=== PATIENT | female | born 1950 | race Caucasian/White ===

== ENCOUNTER 2017-06-08 08:07 | Outpatient (CLI) | payer MEDICARE, OTHER ==
[2017-06-08] MEDS ORDERED: LIDOCAINE 1% / SOD BICARB 8.4% 20 ML VIAL. IJ ONE (08:45)
[2017-06-08] MEDS ORDERED: IOHEXOL 180 MG/ML 10 ML VIAL. EPI ONE (08:45)
[2017-06-08 08:56] LABS: CREATININE 1.1 mg/dL (0.6-1.0); GFR 49.4
[2017-06-08 10:10] VITALS: BP 128/80
--- NOTE | 2017-06-08 11:17 | RAD ---
Lumbar myelogram, 06/08/2017: History: Back and leg pain Under local anesthesia, aseptic conditions and fluoroscopic guidance a lumbar puncture was performed at the upper L4 level utilizing a 25-gauge Samanta spinal needle. Good clear CSF flow was obtained following which 14 cc of Omnipaque 180 was injected into the thecal sac. The spinal needle was then removed and hemostasis obtained. Appropriate imaging was then performed. The patient tolerated the procedure well and was sent to CT in good condition. 3.8 minutes of fluoroscopy time was utilized. 10 fluoroscopic spot images were recorded. The following findings were delineated on the myelogram: 1. There are 4 lumbar type vertebral bodies with sacralization of L5. The lowest clearly visible disc space is therefore termed L4-5. 2. There are moderate anterior extradural defects at T12-L1, L1-2, L2-3 and L3-4. There are also posterior extradural defects at L3-4 and L4-5. In the upright position the thecal sac at L3-4 and L4-5 narrows down to an AP diameter of approximately 5 to 6 mm. 3. With flexion there is slight spondylolisthesis at L4-5. 4. There are mild lateral extradural defects bilaterally at L3-4 and L4-5. 5. There is decreased filling of the L3 and L4 nerve root sleeves, more so on the left. CT of the lumbar spine-post myelogram, 06/08/2017: Multidetector imaging was performed with multiplanar reconstructions produced. The following findings are delineated: 1. There are 4 lumbar type vertebral bodies with sacralization of L5. 2. At L1-2 there is mild to moderate broad-based posterior disc bulging. There are mild degenerative changes involving the facet joints. The central spinal canal is well-preserved. There is mild inferior foraminal encroachment on the left. 3. At L2-3 there is mild posterior disc bulging most prominent laterally on both sides. There are mild degenerative changes involving the facet joints. The central spinal canal is well-preserved. There is mild inferior foraminal narrowing bilaterally. 4. At L3-4 there is moderate broad-based posterior disc bulging there is moderate posterior ligamentous thickening related to moderate facet joint arthropathy. There is mild narrowing of the thecal sac in a triangle configuration, measuring 9 mm in AP diameter at the midline. The combination of findings is causing mild to moderate foraminal encroachment, more so on the right. 5. At L4-5 there is a vacuum disc phenomena. There is mild generalized posterior disc bulging with a small focal density along the left anterolateral aspect of the thecal sac. This probably represents a herniated disc fragment. There is poor filling of the proximal left L5 nerve root sleeve secondary to this density. There are severe degenerative changes involving the facet joints bilaterally with vacuum disc phenomena and considerable posterior ligamentous thickening. The above described left anterolateral density lies adjacent to the left facet joint. A synovial cyst producing this density cannot be excluded. The thecal sac measures 8-9 mm in AP diameter at the midline. The combination of findings is causing mild bilateral foraminal encroachment. 6. The L5-S1 disc space is fused. The thecal sac and neural foramina are widely patent at this level. IMPRESSION: 1. Sacralization of L5 with a lowest clear disc space being termed L4-5. 2. Moderate multilevel degenerative changes as described above. 3. Mild central spinal stenosis at L3-4 due to broad-based posterior disc bulging and posterior ligamentous thickening. 4. Abnormal left anterolateral epidural density at L4-5 compressing the origin of the left L5 nerve root sleeve. This is probably a herniated disc fragment. A synovial cyst related to severe facet joint arthropathy is less likely. 5. Mild central spinal stenosis at L4-5, best seen in the upright position. 6. Mild spondylolisthesis at L4-5 with flexion.
== END 2017-06-08 11:30 | disposition home or self-care (01) ==
LOC: RAD 08:07
PROVIDERS: ATTEND Neurological Surgery
DX: M51.16 Intervertebral disc disorders with radiculopathy, lumbar region (principal); M48.061 Spinal stenosis, lumbar region without neurogenic claudication; M43.16 Spondylolisthesis, lumbar region
CPT/HCPCS: 36415; 72132; 72265; 82565; 84520

== ENCOUNTER → 2017-07-16 | Outpatient (CLI) | payer MEDICARE, OTHER ==
[2017-07-16 15:58] LABS: ADD MAN DIFF? NO
[2017-07-16 16:00] LABS: HEMOGLOBIN 12.7 g/dL (12.0-15.5); MEAN CORPUSCULAR HEMOGLOBIN 29 pg (25-35); MEAN CORPUSCULAR HGB CONC 33 g/dL (31-37); MEAN CORPUSCULAR VOLUME 90 fL (79-100); PLATELET COUNT 290 x10^3/uL (140-400); RED BLOOD COUNT 4.32 x10^6/uL (3.50-5.40); RED CELL DISTRIBUTION WIDTH 13.7 % (11.5-14.5); WHITE BLOOD COUNT 8.1 x10^3/uL (4.0-11.0)
[2017-07-16 16:01] LABS: BASO # 0.1 x10^3/uL (0.0-0.2); BASO % 1 % (0-3); EOS # 0.1 x10^3/uL (0.0-0.7); EOS % 1 % (0-3); LYMPH # 2.6 x10^3/uL (1.0-4.8); LYMPH % 32 % (24-48); MONO # 0.6 x10^3/uL (0.0-1.1); MONO % 8 % (0-9); NEUT # 4.7 x10^3uL (1.8-7.7); NEUT % 58 % (31-73)
[2017-07-16 16:20] LABS: ALBUMIN 3.9 g/dL (3.4-5.0); ALBUMIN/GLOBULIN RATIO 1.1 (1.0-1.7); ALK PHOS 127 U/L (46-116); ALT (SGPT) 24 U/L (14-59); ANION GAP 10 (6-14); AST (SGOT) 27 U/L (15-37); BLOOD UREA NITROGEN 12 mg/dL (7-20); BUN/CREATININE RATIO 13 (6-20); CALCIUM 8.4 mg/dL (8.5-10.1); CARBON DIOXIDE 27 mmol/L (21-32); CHLORIDE 100 mmol/L (98-107); CREATININE 0.9 mg/dL (0.6-1.0); GFR 62.3; GLUCOSE 124 mg/dL (70-99); POTASSIUM 3.9 mmol/L (3.5-5.1); SODIUM 137 mmol/L (136-145); TOTAL BILIRUBIN 0.3 mg/dL (0.2-1.0); TOTAL PROTEIN 7.4 g/dL (6.4-8.2)
[2017-07-17 02:12] LABS: MRSA BY PCR Negative (Negative)
== END | disposition home or self-care (01) ==
LOC: SURGPAT 13:17
DX: I10 Essential (primary) hypertension (principal)
CPT/HCPCS: 36415; 80053; 85025; 87641; 93005

== ENCOUNTER 2017-07-27 06:52 | Day surgery (SDC) | payer MEDICARE, OTHER ==
[2017-07-27] MEDS ORDERED: ONDANSETRON PF 4 MG/2 ML VIAL. IV (07:00)
[2017-07-27] MEDS ORDERED: HYDROmorphone 2 MG/ML VIAL IV (07:00)
[2017-07-27] MEDS ORDERED: LIDOCAINE 1% PF 2 ML VIAL. ID (07:00)
[2017-07-27] MEDS ORDERED: fentaNYL PF VIAL 100 MCG/2 ML VIAL IV (07:00)
[2017-07-27] MEDS ORDERED: MORPHINE SULFATE 2 MG/ML DISP.SYRIN. IV (07:00)
[2017-07-27] MEDS ORDERED: PROCHLORPERAZINE 10 MG/2 ML VIAL. IV (07:00)
[2017-07-27] MEDS: IV RINGERS,LACTATED 1000ML 1,000 ML IV (07:28)
[2017-07-27] MEDS ORDERED: ONDANSETRON PF 4 MG/2 ML VIAL. (08:13)
[2017-07-27] MEDS ORDERED: DEXAMETHASONE SOD PHOS 20 MG/5 ML VIAL. (08:13)
[2017-07-27] MEDS ORDERED: ePHEDrine PF IN SALINE 50 MG/5 ML DISP.SYRIN IV (08:13)
[2017-07-27] MEDS ORDERED: PROPOFOL 20 ML IV (08:13)
[2017-07-27] MEDS ORDERED: PHENYLEPHRINE in 0.9% NACL PF 1 MG/10 ML SYRINGE. IV (08:13)
[2017-07-27] MEDS ORDERED: LIDOCAINE 2% PF Vial for OR 5 ML VIAL. (08:13)
[2017-07-27] MEDS ORDERED: SUCCINYLCHOLINE 200 MG/10 ML VIAL. (08:14)
[2017-07-27] MEDS ORDERED: PROPOFOL 50 ML IV ×2 (08:14→10:33)
[2017-07-27] MEDS ORDERED: ROCURONIUM 50 MG/5 ML VIAL. (08:14)
[2017-07-27] MEDS ORDERED: fentaNYL PF VIAL 100 MCG/2 ML VIAL (08:14)
[2017-07-27] MEDS ORDERED: REMIFENTANIL 2 MG VIAL. IV ×2 (08:15→08:19)
[2017-07-27] MEDS ORDERED: NEOSTIGMINE METHYLSULFATE 5 MG/5 ML SYRINGE. (09:35)
[2017-07-27] MEDS ORDERED: GLYCOPYRROLATE 1 MG/5 ML VIAL. (09:35)
[2017-07-27] MEDS: KETOROLAC 60 MG/2 ML INJ FOR OR. (09:42)
[2017-07-27] MEDS: GELATIN SPONGE SIZE 100. (09:42)
[2017-07-27] MEDS: THROMBIN TOPICAL 20,000 UNIT SPRAY.SYRN KIT TP (09:42)
[2017-07-27] MEDS: BACITRACIN 50,000 UNIT in IV NORMAL SALINE 1000ML BAG 1,000 ML IRR (09:42)
[2017-07-27] MEDS: BUPIVAC MPF-EPI 0.75%-1:200000 30 ML VIAL. (09:42)
[2017-07-27] MEDS ORDERED: DESFLURANE > 120 MINUTES IH (11:09)
[2017-07-27 11:51] LABS: POC GLUCOSE 170 mg/dL (70-99)
[2017-07-27] MEDS: HYDROcodone/APAP 10/325 1 TAB TABLET PO (12:09)
[2017-07-27] MEDS: fentaNYL PF VIAL 100 MCG/2 ML VIAL IV (12:36)
== END 2017-07-27 14:06 | disposition home or self-care (01) ==
LOC: SURG 06:52
DX: M51.16 Intervertebral disc disorders with radiculopathy, lumbar region (principal); M71.38 Other bursal cyst, other site; I10 Essential (primary) hypertension; F41.9 Anxiety disorder, unspecified; F32.9 Major depressive disorder, single episode, unspecified; F17.200 Nicotine dependence, unspecified, uncomplicated; Z87.39 Personal history of other diseases of the musculoskeletal system and connective tissue; Z98.41 Cataract extraction status, right eye; Z98.42 Cataract extraction status, left eye; Z98.890 Other specified postprocedural states; Z90.710 Acquired absence of both cervix and uterus; Z96.652 Presence of left artificial knee joint; Z86.39 Personal history of other endocrine, nutritional and metabolic disease
CPT/HCPCS: 63267; 76000; 82962; 88304; 88311; 97162-GP; 97530-GP; G8978-CK-GP; G8979-CK-GP; G8980-CK-GP; J0330; J0690; J1100; J1885; J2370; J2405; J2704; J2710; J3010; J3490; J7030

== ENCOUNTER → 2017-11-28 | Outpatient (CLI) | payer MEDICARE, OTHER ==
[~2017-11-28] MED LIST: IOHEXOL 180 MG/ML 10 ML VIAL.; LIDOCAINE 1% PF 2 ML VIAL.; methylPREDNISolone ACETATE 40 MG/ML VIAL.; methylPREDNISolone ACETATE 80 MG/ML VIAL.
== END | disposition home or self-care (01) ==
LOC: PNCL 10:22
DX: M51.16 Intervertebral disc disorders with radiculopathy, lumbar region (principal); M96.1 Postlaminectomy syndrome, not elsewhere classified; I10 Essential (primary) hypertension; E11.9 Type 2 diabetes mellitus without complications; I25.10 Atherosclerotic heart disease of native coronary artery without angina pectoris; E03.9 Hypothyroidism, unspecified; Z90.710 Acquired absence of both cervix and uterus; Z96.652 Presence of left artificial knee joint; Z98.890 Other specified postprocedural states; Z79.899 Other long term (current) drug therapy; Z83.3 Family history of diabetes mellitus; Z98.41 Cataract extraction status, right eye; Z98.42 Cataract extraction status, left eye; Z90.721 Acquired absence of ovaries, unilateral; Z90.79 Acquired absence of other genital organ(s); M17.0 Bilateral primary osteoarthritis of knee; M16.0 Bilateral primary osteoarthritis of hip; F41.9 Anxiety disorder, unspecified; F32.9 Major depressive disorder, single episode, unspecified; F17.200 Nicotine dependence, unspecified, uncomplicated; Z79.84 Long term (current) use of oral hypoglycemic drugs
CPT/HCPCS: 62323; J1030; J1040; Q9965

== ENCOUNTER → 2017-12-17 | Outpatient (CLI) | payer MEDICARE, OTHER | END | disposition home or self-care (01) | LOC: PNCL 13:53 | DX: M51.16 Intervertebral disc disorders with radiculopathy, lumbar region (principal); M96.1 Postlaminectomy syndrome, not elsewhere classified; I10 Essential (primary) hypertension; E11.9 Type 2 diabetes mellitus without complications; F32.9 Major depressive disorder, single episode, unspecified; F41.9 Anxiety disorder, unspecified; Z98.42 Cataract extraction status, left eye; Z98.41 Cataract extraction status, right eye; Z96.1 Presence of intraocular lens; Z98.890 Other specified postprocedural states; Z90.710 Acquired absence of both cervix and uterus; Z90.722 Acquired absence of ovaries, bilateral; Z90.79 Acquired absence of other genital organ(s); M17.0 Bilateral primary osteoarthritis of knee; M16.0 Bilateral primary osteoarthritis of hip; Z96.652 Presence of left artificial knee joint; F17.200 Nicotine dependence, unspecified, uncomplicated; Z98.62 Peripheral vascular angioplasty status | CPT/HCPCS: 62323; J1030; J1040; Q9965 ==

== ENCOUNTER → 2018-01-21 | Outpatient (CLI) | payer MEDICARE, OTHER | END | disposition home or self-care (01) | LOC: PNCL 09:42 | DX: M51.16 Intervertebral disc disorders with radiculopathy, lumbar region (principal); M96.1 Postlaminectomy syndrome, not elsewhere classified; M17.0 Bilateral primary osteoarthritis of knee; M16.0 Bilateral primary osteoarthritis of hip; I10 Essential (primary) hypertension; F32.9 Major depressive disorder, single episode, unspecified; F17.200 Nicotine dependence, unspecified, uncomplicated; I25.10 Atherosclerotic heart disease of native coronary artery without angina pectoris; E03.9 Hypothyroidism, unspecified; F41.9 Anxiety disorder, unspecified; E09.9 Drug or chemical induced diabetes mellitus without complications; E66.9 Obesity, unspecified; Z68.31 Body mass index [BMI] 31.0-31.9, adult; Z98.890 Other specified postprocedural states; Z98.42 Cataract extraction status, left eye; Z98.41 Cataract extraction status, right eye; Z79.84 Long term (current) use of oral hypoglycemic drugs; Z98.62 Peripheral vascular angioplasty status; Z96.1 Presence of intraocular lens; Z96.652 Presence of left artificial knee joint; Z90.710 Acquired absence of both cervix and uterus; Z90.79 Acquired absence of other genital organ(s); Z90.722 Acquired absence of ovaries, bilateral; Z83.3 Family history of diabetes mellitus | CPT/HCPCS: 62323; J1030; J1040; Q9965 ==

== ENCOUNTER → 2018-03-12 | Outpatient (CLI) | payer MEDICARE, OTHER ==
[~2018-03-12] MED LIST changes: +ACET325T9 PO; +ALPR0.25 PO; +AMIT50TA PO; +BUPR150T15 PO; +DOCU-109 PO; +GABA600T2 PO; +GABA800T2 PO; +HYDR-2766 PO; -IOHEXOL 180 MG/ML 10 ML VIAL.; +IOHEXOL 180 MG/ML 10 ML VIAL. IT ONE; +LEXAPRO20 MG PO; -LIDOCAINE 1% PF 2 ML VIAL.; +LIDOCAINE WITH 8.4% SOD BICARB 3 ML DISP.SYRIN. INJ ONE; +LOSA1TAB22 PO; +MELO15TA23 PO; +METH-38 PO; +MONT10TA6 PO; -methylPREDNISolone ACETATE 40 MG/ML VIAL.; -methylPREDNISolone ACETATE 80 MG/ML VIAL.
[2018-03-12 09:48] VITALS: BP 169/66
--- NOTE | 2018-03-12 10:57 | RAD ---
Lumbar myelogram, 03/12/2018: History: Right-sided back and leg pain Under local anesthesia, aseptic conditions and fluoroscopic guidance a lumbar puncture was performed at the upper L3 level utilizing a 25-gauge Samanta spinal needle. Good clear CSF flow was obtained following which 14 cc of Omnipaque 180 was injected into the thecal sac. The spinal needle was then removed and appropriate digital imaging performed. 3.0 minutes of fluoroscopy time was utilized. 14 fluoroscopic spot images were recorded. The patient tolerated the procedure well and was sent to CT in good condition. The following findings are delineated on the myelogram: 1. There are 4 lumbar type vertebral bodies with sacralization of L5. For purposes of these reports the lowest obvious disc space is considered to be L4-5. 2. There is severe circumferential narrowing of the thecal sac at the L3-4 level, best seen on the neutral upright view. On the upright flexion view there is slight anterolisthesis at L3-4 which is not present on the upright extension view. 3. There is grade 1 anterolisthesis at L4-5 best seen on the upright flexion view. It partially reduces with extension. There is mild to moderate underlying central spinal stenosis at L4-5 due to anterior and posterior extradural defects. The thecal sac measures approximately 5 mm in AP dimension at this level on the upright neutral and extension views. 4. There is poor opacification of the L3, L4 and L5 nerve root sleeves bilaterally. CT lumbar spine-post myelogram, 03/12/2018: Multidetector CT imaging was performed with multiplanar reconstructions produced. The following findings are delineated: 1. Sacralization of L5 is again noted. No significant abnormality is identified at the partially fused L5-S1 disc space. 2. At L4-5 there has been a left-sided laminectomy. There is a pars defect on the left which may be related to the surgery. There is severe facet joint arthropathy at L4-5 on the right with a vacuum phenomena. The anterolisthesis at L4-5 evident on the upright myelogram images is nearly completely reduced in the supine position. There is a vacuum disc phenomena at L4-5 with moderate broad-based posterior disc protrusion. The thecal sac measures 7-8 mm in AP dimension at the midline in the supine position. There is moderate inferior foraminal narrowing bilaterally at this level. 3. At L3-4 there are moderate degenerative changes involving the facet joints with moderate posterior ligamentous thickening. There is a vacuum disc phenomena with moderate broad-based posterior disc protrusion. The thecal sac measures 7 mm in AP dimension at the midline. There is no significant anterolisthesis at this level in the supine position. The combination of findings is causing moderate bilateral foraminal narrowing, worse on the right due to a prominent facet spur. 4. At L2-3 there is mild posterior ligamentous thickening related to mild facet joint arthropathy. There is mild to moderate broad-based posterior disc bulging. The thecal sac measures 11 mm in AP diameter at the midline. There is mild inferior foraminal narrowing bilaterally. 5. At L1-2 there is mild broad-based posterior disc bulging. The central spinal canal is well-preserved. There is mild bilateral foraminal narrowing. 6. Mild to moderate posterior disc bulges are also present at T12-L1 and T11-12. IMPRESSION: 1. Moderate to severe multilevel degenerative change as described above. 2. Sacralization of L5. 3. Severe central spinal stenosis at L3-4 best seen in the upright position, where there is also slight anterolisthesis at this level with flexion. 4. Postsurgical change at L4-5 with grade 1 spondylolisthesis in the upright position which reduces in the supine position, with mild to moderate central spinal stenosis at that level. PQRS Compliance Statement: One or more of the following individualized dose reduction techniques were utilized for this examination: 1. Automated exposure control 2. Adjustment of the mA and/or kV according to patient size 3. Use of iterative reconstruction technique
== END | disposition home or self-care (01) ==
LOC: RAD 08:17
PROVIDERS: ATTEND Neurological Surgery
DX: M48.061 Spinal stenosis, lumbar region without neurogenic claudication (principal); M43.16 Spondylolisthesis, lumbar region; M43.26 Fusion of spine, lumbar region; M12.88 Other specific arthropathies, not elsewhere classified, other specified site; M51.26 Other intervertebral disc displacement, lumbar region; F17.200 Nicotine dependence, unspecified, uncomplicated; I10 Essential (primary) hypertension; E11.9 Type 2 diabetes mellitus without complications; I25.10 Atherosclerotic heart disease of native coronary artery without angina pectoris; E03.9 Hypothyroidism, unspecified; Z86.39 Personal history of other endocrine, nutritional and metabolic disease; Z87.39 Personal history of other diseases of the musculoskeletal system and connective tissue; Z90.722 Acquired absence of ovaries, bilateral; Z90.79 Acquired absence of other genital organ(s); Z90.710 Acquired absence of both cervix and uterus; Z96.652 Presence of left artificial knee joint; Z83.3 Family history of diabetes mellitus
CPT/HCPCS: 72132; 72265; Q9965

== ENCOUNTER 2018-03-22 06:01 | Inpatient (IN) | payer MEDICARE, OTHER ==
--- NOTE | 2018-03-21 14:10 | PREOP HP ---
DATE OF SERVICE: 03/22/2018 HISTORY OF PRESENT ILLNESS: The patient is a pleasant 67-year-old whose problem is low back pain, which is predominantly on the right side along with right posterior lateral leg pain and tingling. She notes pain, which radiates on the lateral right leg to the dorsum of her right foot. She said that even when she had surgery last year for predominantly left leg pain, she did have at that time some right leg pain, which was markedly worsened. The pain has increased especially over the last couple of months. She says that frequently, the pain in her right leg is so severe that she wanted to to help the pain stop. She relates that in January, she was in the Emergency Room at [facility]. She rates her pain as a 9/10 with standing and walking. Sitting and driving her lower back seems to help her. She has been taking oxycodone as well as gabapentin. She underwent 3 epidural steroid injections recently without help. She is using a cane recently to help with ambulation. She feels there may be some weakness in her right foot. She said she has been falling because her foot seems to catch and her leg gives out. PAST MEDICAL HISTORY: Arthritis, artificial left knee, headaches and migraines, hypertension, osteoporosis, rheumatoid arthritis, diabetes. PAST SURGICAL HISTORY: Hysterectomy 1981, angioplasty balloon 1997, total knee replacement 2012, bladder repair, spinal cord stimulator 2013, decompression L4-L5 left with removal of synovial cyst. Removal of spinal cord stimulator in 07/2017 as well. FAMILY HISTORY: Cancer, diabetes and hypertension. SOCIAL HISTORY: Retired. . Exercises daily. Denies substance abuse. Denies tobacco use. Drinks coffee daily. ALLERGIES: No known drug allergies. CURRENT MEDICATIONS: Singulair, escitalopram oxalate, sodium, gabapentin, losartan, potassium, Wellbutrin, Xanax, amitriptyline, oxycodone, Robaxin. REVIEW OF SYSTEMS: A 12-point review of systems was obtained and is noncontributory except for that mentioned above. PHYSICAL EXAMINATION: NEUROSURGERY EXAMINATION: GENERAL APPEARANCE: Alert, pleasant, in mild distress because of back and leg pain. HEAD: Normocephalic and atraumatic. SKIN: Warm and dry, well-healed lumbar incision. MUSCULOSKELETAL: Lumbar paraspinal muscle bulk is normal, restricted range of motion of lumbar spine, [id number] tenderness of lower lumbar spine with palpation, normal range of motion of the lower extremities bilaterally. EXTREMITIES: No clubbing, cyanosis or edema. NEUROLOGIC: Alert and oriented x 3, normal recent memory, strength 5/5 in bilateral lower extremities except for 4+/5 right foot dorsiflexion, sensory was intact to light touch in the lower extremities bilaterally except for decrease in the dorsum of her right foot. Reflexes were trace and symmetric in bilateral lower extremities, negative straight leg raising bilaterally, antalgic gait favoring her right leg. IMAGING STUDIES: Reviewed. I reviewed her lumbar myelogram and post-myelogram CT scan. On the plain myelographic images, there are small grade 1 anterolisthesis at L3-L4 and more significant grade 1 anterolisthesis at L4-L5, which is best seen in an upright flexion view. The spondylolisthesis at L4-L5 partially reduces in x-ray and virtually completely reduces on the lumbar CT scan. There is severe central spinal stenosis at L3-L4 that is best seen in the upright plain myelographic images. There are postsurgical changes at L4-L5 with a pars defect at the left and moderate stenosis at the level measuring 5 mm and moderate foraminal narrowing. On the CT portion with the spondylolisthesis reduced, the central canal measures 8 mm. ASSESSMENT AND PLAN: 1. Radiculopathy, lumbar region. 2. Spinal stenosis, lumbar region with neurogenic claudication. 3. Spondylolisthesis, lumbar region. The patient has severe right lumbar radiculopathy. She has developed spondylolisthesis at L4-L5, which is a grade 1 when she is standing and reduced virtually completely when she is supine on the CT scan. There is severe stenosis at L3-L4, when she is upright and as well moderately severe stenosis at L4-L5 with foraminal narrowing. At this point, my feeling is that she should undergo surgery at L3-L4 and L4-L5 on the right. I would perform a hemilaminotomy at L4-L5 to decompress the dura and the root as well as open the neural foramen and combine this with an anterior diskectomy and fusion at this level along with posterior instrumentation and posterolateral fusion. At L3-L4, I have recommended a right direct laminectomy and decompress the severe lumbar spinal stenosis. I discussed surgery and risks. I explained the rationale for surgery. She understands. She would like to go ahead with surgery. We will make the arrangements. HEATHER VARMA MD DR: ALEX/main JOB#: [id number] / [id number]
[~2018-03-22] VITALS: Ht 167.6 cm; Wt 88.5 kg
[~2018-03-22 06:01] MED LIST changes: +BACITRACIN 50,000 UNIT in IV NORMAL SALINE 1000ML BAG 1,000 ML IRR ONE; +GELATIN SPONGE SIZE 100. ONE; -IOHEXOL 180 MG/ML 10 ML VIAL. IT ONE; +KETOROLAC 60 MG/2 ML INJ FOR OR. ONE; -LIDOCAINE WITH 8.4% SOD BICARB 3 ML DISP.SYRIN. INJ ONE; +OXYC-328 PO; +PRAM0.255 PO; +THROMBIN TOPICAL 20,000 UNIT SPRAY.SYRN KIT TP ONE
[2018-03-22] MEDS ORDERED: PROPOFOL 100 ML IV ONE (06:48)
[2018-03-22] MEDS ORDERED: IV RINGERS,LACTATED 1000ML 1,000 ML IV SCH (07:00)
[2018-03-22] MEDS ORDERED: fentaNYL PF VIAL 100 MCG/2 ML VIAL IV PRN ×2 (07:00→15:00)
[2018-03-22] MEDS ORDERED: PROCHLORPERAZINE 10 MG/2 ML VIAL. IV PRN (07:00)
[2018-03-22] MEDS ORDERED: HYDROmorphone 2 MG/ML VIAL IV PRN (07:00)
[2018-03-22] MEDS ORDERED: ceFAZolin 2GM PREMIX 2 GM/50 ML BAG IV ONE (07:00)
[2018-03-22] MEDS ORDERED: LIDOCAINE 1% PF 2 ML VIAL. ID PRN (07:00)
[2018-03-22] MEDS ORDERED: BUPIVAC MPF-EPI 0.5%-1:200000 30 ML VIAL. INJ ONE (07:30)
[2018-03-22] MEDS ORDERED: SUCCINYLCHOLINE 200 MG/10 ML VIAL. ONE (07:41)
[2018-03-22] MEDS ORDERED: LIDOCAINE 1% PF 5 ML VIAL. ONE (07:41)
[2018-03-22] MEDS ORDERED: ROCURONIUM 50 MG/5 ML VIAL. ONE (07:41)
[2018-03-22] MEDS ORDERED: PROPOFOL 20 ML IV ONE (07:41)
[2018-03-22] MEDS ORDERED: fentaNYL PF VIAL 100 MCG/2 ML VIAL ONE (07:41)
[2018-03-22] MEDS ORDERED: REMIFENTANIL 2 MG VIAL. IV ONE (07:42)
[2018-03-22] MEDS: fentaNYL PF VIAL 100 MCG/2 ML VIAL IV PRN ×6 (08:32→23:13)
[2018-03-22] MEDS ORDERED: DESFLURANE > 120 MINUTES IH ONE (09:05)
[2018-03-22] MEDS ORDERED: DEXAMETHASONE SOD PHOS 20 MG/5 ML VIAL. ONE (09:05)
[2018-03-22] MEDS ORDERED: ePHEDrine PF IN SALINE 50 MG/5 ML DISP.SYRIN IV ONE (09:18)
[2018-03-22] MEDS ORDERED: PHENYLEPHRINE in 0.9% NACL PF 1 MG/10 ML SYRINGE. IV ONE (09:45)
[2018-03-22] MEDS ORDERED: PHENYLEPHRINE 10 MG/ML VIAL. ONE (10:21)
[2018-03-22] MEDS ORDERED: ONDANSETRON PF 4 MG/2 ML VIAL. ONE (10:49)
[2018-03-22] MEDS ORDERED: PROPOFOL 50 ML IV ONE ×2 (11:59→14:00)
--- NOTE | 2018-03-22 12:19 | RAD ---
CT of the lumbar spine without contrast, 03/22/2018: HISTORY: Lumbar stenosis, [facility] study Noncontrast scans were obtained with multiplanar reconstructions produced. The data was transferred to the operating room to aid in the patient's stereotactically guided surgery. The following findings are delineated: 1. There is sacralization of L5. The lowest clearly visible lumbar disc space is considered to be L4-5. 2. There is severe central spinal stenosis at L3-4 and moderate central spinal stenosis at L4-5, as fully described on the recent CT myelogram of 03/12/2018. Electronically signed by: Sean Carpio MD (03/22/2018 12:16 PM) [facility]
[2018-03-22] MEDS ORDERED: REMIFENTANIL 1 MG VIAL. IV ONE (13:36)
[2018-03-22] MEDS ORDERED: ONDANSETRON PF 4 MG/2 ML VIAL. IV PRN (15:00)
[2018-03-22] MEDS ORDERED: MAG HYDROX/ALUMINUM HYD/SIMETH 30 ML ORAL.SUSP PO PRN (15:00)
[2018-03-22] MEDS ORDERED: ACETAMINOPHEN 325 MG TABLET. PO PRN (15:00)
[2018-03-22] MEDS ORDERED: CALCIUM CARBONATE 500 MG TAB.CHEW PO PRN (15:00)
[2018-03-22] MEDS ORDERED: 0.9 % SODIUM CHLORIDE 10 ML DISP.SYRIN. IV PRN (15:00)
[2018-03-22] MEDS ORDERED: diphenhydrAMINE 50 MG/ML VIAL IV PRN (15:00)
[2018-03-22] MEDS ORDERED: oxyCODONE/APAP 5/325 1 TAB TABLET PO PRN (15:00)
[2018-03-22] MEDS ORDERED: MAGNESIUM HYDROXIDE 2,400 MG/30 ML ORAL.SUSP. PO PRN (15:00)
[2018-03-22] MEDS: MORPHINE SULFATE 2 MG/ML VIAL. IV PRN ×2 (16:00→16:13)
[2018-03-22] MEDS ORDERED: POTASSIUM CL 20MEQ D5-0.45NACL 1,000 ML IV SCH (17:00)
[2018-03-22] MEDS: oxyCODONE/APAP 5/325 1 TAB TABLET PO PRN (18:25)
[2018-03-22 19:00] VITALS: BP 143/60
[2018-03-22] MEDS: AMITRIPTYLINE HCL 50 MG TABLET PO SCH (20:54)
[2018-03-22] MEDS: METHOCARBAMOL 750 MG TABLET PO SCH (20:55)
[2018-03-22] MEDS: DOCUSATE SODIUM 100 MG CAPSULE. PO SCH (20:57)
[2018-03-22] MEDS: PRAMIPEXOLE 0.25 MG TABLET. PO SCH (20:57)
[2018-03-22] MEDS: ceFAZolin SODIUM IV Push 1 GM VIAL. IVP SCH (20:58)
[2018-03-22] MEDS ORDERED: DOCUSATE SODIUM 100 MG CAPSULE. PO SCH (21:00)
[2018-03-22] MEDS ORDERED: MONTELUKAST SODIUM 10 MG TABLET. PO SCH (21:00)
[2018-03-22] MEDS ORDERED: ceFAZolin SODIUM 1 GM in IV DEXTROSE 5% 50 ML IV SCH (22:00)
[2018-03-22 23:00] VITALS: BP 148/53
[2018-03-22] MEDS: diphenhydrAMINE HCL 25 MG CAPSULE PO PRN (23:13)
[2018-03-22] MEDS ORDERED: GABA600T2 PO (23:21)
[2018-03-23] MEDS: oxyCODONE/APAP 5/325 1 TAB TABLET PO PRN ×3 (00:06→11:03)
[2018-03-23] MEDS: fentaNYL PF VIAL 100 MCG/2 ML VIAL IV PRN ×3 (02:31→08:30)
[2018-03-23 03:00] VITALS: BP 136/61
[2018-03-23] MEDS: ceFAZolin SODIUM IV Push 1 GM VIAL. IVP SCH ×2 (04:17→12:29)
[2018-03-23 07:00] VITALS: BP 152/80
[2018-03-23] MEDS: CITALOPRAM 20 MG TABLET. PO SCH (08:32)
[2018-03-23] MEDS: LOSARTAN POTASSIUM 50 MG TABLET. PO SCH (08:32)
[2018-03-23] MEDS: DOCUSATE SODIUM 100 MG CAPSULE. PO SCH ×2 (08:32→20:47)
[2018-03-23] MEDS: hydroCHLOROthiazide 25 MG TABLET PO SCH ×2 (08:32→09:00)
[2018-03-23] MEDS: METHOCARBAMOL 750 MG TABLET PO SCH ×3 (08:32→20:47)
[2018-03-23] MEDS: MONTELUKAST SODIUM 10 MG TABLET. PO SCH (08:33)
[2018-03-23] MEDS: ALPRAZolam 0.25 MG TABLET PO PRN ×2 (08:33→20:47)
[2018-03-23] MEDS: buPROPion XL 150 MG TAB.ER.24H. PO SCH (08:33)
[2018-03-23] MEDS: PRAMIPEXOLE 0.25 MG TABLET. PO SCH ×2 (08:33→20:47)
[2018-03-23 11:00] VITALS: BP 112/61
[2018-03-23] MEDS ORDERED: oxyCODONE/APAP 7.5/325 1 TAB TABLET PO PRN (12:45)
[2018-03-23] MEDS: oxyCODONE/APAP 7.5/325 1 TAB TABLET PO PRN ×2 (14:09→18:27)
[2018-03-23 15:00] VITALS: BP 117/73
[2018-03-23 19:00] VITALS: BP 118/61
--- NOTE | 2018-03-23 20:37 | PDOC ---
PROGRESS NOTES Subjective Subjective Patient seen at 1230 POD#1 resting in bed no leg pain back/ incisional pain Objective Objective Vital Signs Date Time Temp Pulse Resp B/P (MAP) Pulse Ox O2 Delivery O2 Flow Rate FiO2 03/23/18 19:27 20 96 Room Air 03/23/18 19:00 98.1 87 118/61 (80) 98.1 03/22/18 17:00 15.0 Intake and Output 03/23/18 07:00 Intake Total 2250 ml Output Total 950 ml Balance 1300 ml Intake Oral 1200 ml IV Total 1050 ml Output Urine Total 800 ml Estimated Blood Loss 150 ml # Voids 1 Physical Exam General: Alert, Oriented X3, Cooperative MUSCULOSKELETAL: Other (BYRNE) Neuro: Normal speech Skin: Other (dressing dry, inact, flat, reinforced per RN overnight) Plan Plan of Care encouraged increased activity as tolerated PT, brace on when up Likely dc tomorrow Comment Review of Relevant I have reviewed the following items zak (where applicable) has been applied. Medications Current Medications Bacitracin 94808 unit/Sodium Chloride 1,000 ml @ 1,000 mls/hr 1X ONCE IRR Last administered on 03/22/18at 09:37; Start 03/22/18 at 06:00; Stop 03/22/18 at 06:59; Status DC Fentanyl Citrate (Fentanyl 2ml Vial) 25 mcg PRN Q5MIN PRN IV MILD PAIN; Start 03/22/18 at 07:00; Stop 03/23/18 at 06:59; Status DC Fentanyl Citrate (Fentanyl 2ml Vial) 50 mcg PRN Q5MIN PRN IV MODERATE TO SEVERE PAIN Last administered on 03/22/18at 15:44; Start 03/22/18 at 07:00; Stop 03/23/18 at 06:59; Status DC Morphine Sulfate (Morphine Sulfate) 1 mg PRN Q10MIN PRN IV SEVERE PAIN Last administered on 03/22/18at 16:13; Start 03/22/18 at 07:00; Stop 03/23/18 at 06:59 ; Status DC Ringer's Solution 1,000 ml @ 30 mls/hr Q24H IV Last administered on 03/22/18at 06:55; Start 03/22/18 at 07:00; Stop 03/22/18 at 18:59; Status DC Lidocaine HCl (Xylocaine-Mpf 1% 2ml Vial) 2 ml PRN 1X PRN ID IV START; Start at 07:00; Stop 03/23/18 at 06:59; Status DC Hydromorphone HCl (Dilaudid) 0.5 mg PRN Q10MIN PRN IV SEV PAIN, Second choice; Start 03/22/18 at 07:00; Stop 03/23/18 at 06:59; Status DC Prochlorperazine Edisylate (Compazine) 5 mg PACU PRN PRN IV NAUSEA, MRX1; Start 03/22/18 at 07:00; Stop 03/23/18 at 06:59; Status DC Cefazolin Sodium/ Dextrose 50 ml @ 100 mls/hr 1X PREOP PRN IV PRIOR TO PROCEDURE Last administered on 03/22/18at 13:33; Start 03/22/18 at 06:00; Stop at 18:00; Status DC Gelatin (Gelfoam Size 100) 1 each STK-MED ONCE .ROUTE Last administered on at 09:37; Start 03/22/18 at 05:48; Stop 03/22/18 at 06:49; Status DC Ketorolac Tromethamine (Toradol For Or Only) 60 mg STK-MED ONCE .ROUTE Last administered on 03/22/18at 09:37; Start 03/22/18 at 05:49; Stop 03/22/18 at 06:50 ; Status DC Thrombin 20,000 unit STK-MED ONCE TP Last administered on 03/22/18at 09:37; Start 03/22/18 at 05:49; Stop 03/22/18 at 06:50; Status DC Bupivacaine HCl/ Epinephrine Bitart (Sensorcain-Mpf Epi 0.5%-1:[id number]) 30 ml 1X ONCE INJ Last administered on 03/22/18at 09:37; Start 03/22/18 at 07:30; Stop 03/22/18 at 07:31; Status DC Propofol 20 ml @ As Directed STK-MED ONCE IV ; Start 03/22/18 at 07:41; Stop at 07:42; Status DC Lidocaine HCl (Xylocaine-Mpf 1% 5ml Vial) 5 ml STK-MED ONCE .ROUTE ; Start 03/22 at 07:41; Stop 03/22/18 at 07:42; Status DC Fentanyl Citrate (Fentanyl 2ml Vial) 100 mcg STK-MED ONCE .ROUTE ; Start at 07:41; Stop 03/22/18 at 07:42; Status DC Succinylcholine Chloride (Anectine) 200 mg STK-MED ONCE .ROUTE ; Start 03/22/18 at 07:41; Stop 03/22/18 at 07:42; Status DC Rocuronium [place] (Zemuron) 50 mg STK-MED ONCE .ROUTE ; Start 03/22/18 at 07:41 ; Stop 03/22/18 at 07:42; Status DC Remifentanil HCl (Ultiva) 2 mg STK-MED ONCE IV ; Start 03/22/18 at 07:42; Stop 03/22/18 at 07:43; Status DC Propofol 100 ml @ As Directed STK-MED ONCE IV ; Start 03/22/18 at 06:48; Stop 03/22/18 at 07:49; Status DC Dexamethasone Sodium Phosphate (Decadron) 20 mg STK-MED ONCE .ROUTE ; Start at 09:05; Stop 03/22/18 at 09:06; Status DC Desflurane (Suprane) 90 ml STK-MED ONCE IH ; Start 03/22/18 at 09:05; Stop 03/22 at 09:06; Status DC Ephedrine Sulfate (ePHEDrine PF IN SALINE SYRINGE) 50 mg STK-MED ONCE IV ; Start 03/22/18 at 09:18; Stop 03/22/18 at 09:19; Status DC Phenylephrine HCl (PHENYLEPHRINE in 0.9% NACL PF) 1 mg STK-MED ONCE IV ; Start 03/22/18 at 09:45; Stop 03/22/18 at 09:46; Status DC Phenylephrine HCl (Brian-Synephrine Inj) 10 mg STK-MED ONCE .ROUTE ; Start at 10:21; Stop 03/22/18 at 10:22; Status DC Ondansetron HCl (Zofran) 4 mg STK-MED ONCE .ROUTE ; Start 03/22/18 at 10:49; Stop 03/22/18 at 10:50; Status DC Cefazolin Sodium/ Dextrose (Ancef 2gm Premix) 2 gm STK-MED ONCE IV ; Start 03/22 at 07:00; Stop 03/22/18 at 11:11; Status DC Propofol 50 ml @ As Directed STK-MED ONCE IV ; Start 03/22/18 at 11:59; Stop at 12:00; Status DC Cefazolin Sodium/ Dextrose 50 ml @ As Directed STK-MED ONCE IV ; Start 03/22/18 at 11:44; Stop 03/22/18 at 12:45; Status DC Remifentanil HCl (Ultiva) 1 mg STK-MED ONCE IV ; Start 03/22/18 at 13:36; Stop 03/22/18 at 13:37; Status DC Propofol 50 ml @ As Directed STK-MED ONCE IV ; Start 03/22/18 at 14:00; Stop at 14:01; Status DC Alprazolam (Xanax) 0.25 mg PRN Q6HRS PRN PO ANXIETY / AGITATION Last administered on 03/23/18at 08:33; Start 03/22/18 at 15:00 Amitriptyline HCl (Elavil) 50 mg QHS PO Last administered on 03/22/18at 20:54; Start 03/22/18 at 21:00 Bupropion HCl (Wellbutrin Xl) 150 mg DAILY PO Last administered on 03/23/18at 08 :33; Start 03/23/18 at 09:00 Docusate Sodium (Colace) 100 mg BID PO Last administered on 03/23/18at 08:32; Start 03/22/18 at 21:00 Citalopram Hydrobromide (CeleXA) 40 mg DAILY PO Last administered on 03/23/18at 08:32; Start 03/23/18 at 09:00 Losartan Potassium (Cozaar) 100 mg DAILY PO Last administered on 03/23/18at 08: 32; Start 03/23/18 at 09:00 Montelukast Sodium (Singulair) 10 mg QHS PO ; Start 03/22/18 at 21:00; Stop at 02:05; Status DC Pramipexole Dihydrochloride (miraPEX) 0.25 mg BID PO Last administered on at 08:33; Start 03/22/18 at 21:00 Fentanyl Citrate (Fentanyl 2ml Vial) 50 mcg PRN Q2HR PRN IV PAIN SEVERE 1ST CHOICE Last administered on 03/23/18at 08:30; Start 03/22/18 at 15:00 Fentanyl Citrate (Fentanyl 2ml Vial) 25 mcg PRN Q2HR PRN IV PAIN MODERATE 1ST CHOICE; Start 03/22/18 at 15:00 Acetaminophen (Tylenol) 650 mg PRN Q6HRS PRN PO HEADACHE / TEMP; Start at 15:00 Al Hydroxide/Mg Hydroxide (Mylanta Plus Xs) 30 ml PRN Q3HRS PRN PO HEARTBURN / GAS; Start 03/22/18 at 15:00 Calcium Carbonate/ Glycine (Tums) 500 mg PRN Q3HRS PRN PO INDIGESTION; Start at 15:00 Diphenhydramine HCl (Benadryl) 25 mg PRN Q6HRS PRN PO ITCHING Last administered on 03/22/18at 23:13; Start 03/22/18 at 15:00 Diphenhydramine HCl (Benadryl) 25 mg PRN Q6HRS PRN IV ITCHING; Start 03/22/18 at 15:00 Sodium Chloride (Normal Saline Flush) 3 ml QSHIFT PRN IV AFTER MEDS AND BLOOD DRAWS; Start 03/22/18 at 15:00 Potassium Chloride/Dextrose/ Sod Cl 1,000 ml @ 75 mls/hr [id number] IV ; Start at 17:00; Stop 03/23/18 at 06:26; Status DC Oxycodone/ Acetaminophen (Percocet 5/325) 1 tab PRN Q4HRS PRN PO MILD PAIN, 1ST CHOICE; Start 03/22/18 at 15:00; Stop 03/23/18 at 12:39; Status DC Oxycodone/ Acetaminophen (Percocet 5/325) 2 tab PRN Q4HRS PRN PO MODERATE PAIN , SEVERE PAIN Last administered on 03/23/18at 11:03; Start 03/22/18 at 15:00; Stop 03/23/18 at 12:39; Status DC Methocarbamol (Robaxin) 750 mg TID PO Last administered on 03/23/18at 14:09; Start 03/22/18 at 21:00 Docusate Sodium (Colace) 100 mg BID PO ; Start 03/22/18 at 21:00; Status UNV Magnesium Hydroxide (Milk Of Magnesia) 2,400 mg PRN Q12HR PRN PO CONSTIPATION; Start 03/22/18 at 15:00 Ondansetron HCl (Zofran) 4 mg PRN Q6HRS PRN IV NAUESA, 1ST CHOICE; Start at 15:00 Cefazolin Sodium 1 gm/Dextrose 50 ml @ 100 mls/hr Q8HRS IV ; Start 03/22/18 at 22:00; Stop 03/22/18 at 22:00; Status DC Cefazolin Sodium (Ancef) 1 gm Q8H IVP Last administered on 03/23/18at 12:29; Start 03/22/18 at 20:00; Stop 03/23/18 at 12:01; Status DC Hydrochlorothiazide (Hydrodiuril) 25 mg DAILY PO ; Start 03/23/18 at 09:00 Montelukast Sodium (Singulair) 10 mg DAILY PO Last administered on 03/23/18at 08 :33; Start 03/23/18 at 09:00 Oxycodone/ Acetaminophen (Percocet 7.5/ 325) 2 tab PRN Q4HRS PRN PO PAIN Last administered on 03/23/18at 18:27; Start 03/23/18 at 12:45 Oxycodone/ Acetaminophen (Percocet 7.5/ 325) 1 tab PRN Q4HRS PRN PO PAIN; Start 03/23/18 at 12:45 Active Scripts Active Colace (Docusate Sodium) 100 Mg Capsule 100 Mg PO BID Reported Gabapentin 600 Mg Tablet 600 Mg PO TID PRN Percocet 10-325 Mg Tablet (Oxycodone/Acetaminophen) 1 Each Tablet 2 Tab PO QID Mirapex (Pramipexole Di-Hcl) 0.25 Mg Tablet 0.25 Mg PO BID Xanax (Alprazolam) 0.25 Mg Tablet 0.25 Mg PO PRN Q6HRS PRN Wellbutrin Xl (Bupropion Hcl) 150 Mg Tab.er.24h 150 Mg PO DAILY Meloxicam 15 Mg Tablet 15 Mg PO DAILY Losartan-Hctz 100-25 Mg Tab (Losartan/Hydrochlorothiazide) 1 Each Tablet 1 Each PO DAILY Lexapro (Escitalopram Oxalate) 20 Mg Tablet 20 Mg PO DAILY Hydrocodone-Apap 10-325 (Hydrocodone Bit/Acetaminophen) 1 Each Tablet 1 Tab PO PRN Q6HRS PRN Singulair Tablet (Montelukast Sodium) 10 Mg Tablet 10 Mg PO DAILY Amitriptyline Hcl 50 Mg Tablet 1 Tab PO QHS Vitals/I & O Vital Sign - Last 24 Hours 03/22/18 03/22/18 03/23/18 03/23/18 23:00 23:13 00:06 02:31 Temp 99.1 99.1 Pulse 88 Resp 18 18 18 B/P (MAP) 148/53 (84) Pulse Ox 97 O2 Delivery Room Air Room Air Room Air Room Air 03/23/18 03/23/18 03/23/18 03/23/18 03:00 05:49 06:52 07:00 Temp 98.3 99.3 98.3 99.3 Pulse 81 95 Resp 18 18 20 B/P (MAP) 136/61 (86) 152/80 (104) Pulse Ox 99 95 O2 Delivery Room Air Room Air Room Air Room Air 03/23/18 03/23/18 03/23/18 03/23/18 08:00 08:30 08:32 09:00 Pulse 95 Resp 18 18 B/P (MAP) 152/80 Pulse Ox 99 96 O2 Delivery Room Air Room Air Room Air 03/23/18 03/23/18 03/23/18 03/23/18 11:00 11:03 12:05 14:09 Temp 98.2 98.2 Pulse 88 Resp 20 14 17 14 B/P (MAP) 112/61 (78) Pulse Ox 96 96 O2 Delivery Room Air Room Air Room Air Room Air 03/23/18 03/23/18 03/23/18 03/23/18 15:00 18:27 19:00 19:27 Temp 98.4 98.1 98.4 98.1 Pulse 87 87 Resp 18 18 18 20 B/P (MAP) 117/73 (88) 118/61 (80) Pulse Ox 96 96 97 96 O2 Delivery Room Air Room Air Room Air Room Air Intake and Output 03/22/18 03/22/18 03/23/18 15:00 23:00 07:00 Intake Total 700 ml 550 ml 1000 ml Output Total 950 ml Balance 700 ml -400 ml 1000 ml HEATHER VARMA MD Mar 23, 2018 20:37
[2018-03-23] MEDS: diphenhydrAMINE HCL 25 MG CAPSULE PO PRN (20:47)
[2018-03-23] MEDS: AMITRIPTYLINE HCL 50 MG TABLET PO SCH (20:47)
[2018-03-24] MEDS: oxyCODONE/APAP 7.5/325 1 TAB TABLET PO PRN ×4 (00:33→13:19)
[2018-03-24 03:00] VITALS: BP 115/67
[2018-03-24] MEDS: ALPRAZolam 0.25 MG TABLET PO PRN ×2 (05:22→11:29)
[2018-03-24 07:00] VITALS: BP 115/55
[2018-03-24] MEDS: DOCUSATE SODIUM 100 MG CAPSULE. PO SCH (08:03)
[2018-03-24] MEDS: CITALOPRAM 20 MG TABLET. PO SCH (08:03)
[2018-03-24] MEDS: hydroCHLOROthiazide 25 MG TABLET PO SCH ×2 (08:03→09:27)
[2018-03-24] MEDS: METHOCARBAMOL 750 MG TABLET PO SCH ×2 (08:04→13:19)
[2018-03-24] MEDS: MONTELUKAST SODIUM 10 MG TABLET. PO SCH (08:04)
[2018-03-24] MEDS: buPROPion XL 150 MG TAB.ER.24H. PO SCH (08:04)
[2018-03-24] MEDS: PRAMIPEXOLE 0.25 MG TABLET. PO SCH (08:04)
[2018-03-24] MEDS ORDERED: GABAPENTIN 300 MG CAPSULE. PO PRN (09:00)
[2018-03-24] MEDS: LOSARTAN POTASSIUM 50 MG TABLET. PO SCH (09:27)
[2018-03-24 11:00] VITALS: BP 96/75
--- NOTE | 2018-03-24 12:29 | DISCH ---
DISCHARGE INSTRUCTIONS Condition on Discharge Condition on Discharge: Stable Activity After Discharge Activity Instructions for Disc: Activity as tolerated, Avoid exertion Bathing Instructions: Shower-keep dressing dry Lifting Instructions after Dis: No heavy lifting, No pulling or pushing, Do not lift >10 pounds Driving Instructions after Dis: No driving for 2 weeks Diet after Discharge Additional Diet Restrictions: resume home diet Wound Incision Care Wound/Incision Care: Ice to area for comfort Other wound/incision instructi: may remove dressing tomorrow if dry then may shower- no soaking Contacting the DRRomel after DC Call your doctor for: Concerns you may have Follow-Up Follow up with: Dr. Rouse's nurse in 2 weeks [phone] Treatment/Equipment after DC Adaptive Equipment Issued: HEATHER Lopez MD Mar 24, 2018 12:29
[2018-03-24] MEDS ORDERED: METH750T2 PO (12:33)
[2018-03-24] MEDS ORDERED: OXYC1TAB8 PO (12:33)
--- NOTE | 2018-03-24 19:00 | OP ---
DATE OF SURGERY: 03/22/2018 PREOPERATIVE DIAGNOSES: 1. Spondylolisthesis L4-L5 with motion on flexion and extension with severe right lumbar radiculopathy. 2. Lumbar spinal stenosis, L3-L4. OPERATION PERFORMED: 1. Hemilaminotomy and transforaminal decompression of right L4-L5. 2. Laminectomy L3-L4. 3. Posterior instrumentation L4-L5 and posterolateral fusion L4-L5 with allograft and autograft bone along with anterior diskectomy L4-L5 with placement of interbody fusion cage. The operation was done with stimulated EMG monitoring, fluoroscopy, microscopic dissection, BrainLAB guidance, bone marrow aspiration. METAL SMELTER: BIBIANA Gann assisted with the surgery. She assisted with the decompression, the anterior fusion as well as the posterior instrumentation, posterolateral fusion and closure. OPERATIVE INDICATIONS: The patient is a very pleasant 67-year-old woman who last year underwent a decompression on the left at L4-L5 and did well from that with regard to her left leg pain, but then developed increasingly severe right lower extremity pain, which failed to improve with epidural steroid injections. The pain became severe enough that she had difficulty ambulating. On imaging studies, she was found to have developed motion at L4-L5 along with significant lateral stenosis at the level on the right side and in addition, stenosis at L3-L4. I recommended surgery to correct the stenosis at L3-L4 combined with the decompression and instrumentation at L4-L5. I spoke with her about the surgery and the risks, she understood and she wished to go ahead. DESCRIPTION OF PROCEDURE: Following general endotracheal anesthesia, the patient was positioned prone on the Liam table with lumbar regions prepped and draped in standard fashion. PAPI hose and AV impulse boots were applied for DVT prophylaxis. The microscope was draped. Fluoroscopy was draped and brought into the field. Monitoring was established. Ancef 2 g was given less than 1 hour prior to the initiation of the surgery. Iliac screws were placed into the left iliac crest and the BrainLAB system was initialized. I then made an incision, which included part of her old incision, but extended from L3 through L5. I dissected down the skin and subcutaneous tissue and I created an exposure at L3-L4, brought in the high speed air drill and brought in the microscope and drilled down a very generous hemilaminotomy, which I then carried across the midline to the performer laminectomy. I trimmed away very thickened ligamentum flavum, removed interspinous fat, and I worked laterally exposing the dura and performing a partial foraminotomy on the right side to decompress the nerve roots. The disk was bulging slightly, but very firm. No diskectomy was warranted and as I worked removing the very thickened ligamentum flavum and fully decompressing the region, I felt that I had developed an excellent decompression at L3-L4. When I completed the laminectomy at this level, then I moved down to L4-L5 and on the left side, then I created an exposure and using the Aud[employer] Magic system, drilled into the posterior aspect of the pedicles of L4 and L5. I passed the black ball followed by the ball tip probe, followed by tap and screw placement. During this time, I aspirated 20 mL of bone marrow and I excoriated the transverse processes and lateral facets and packed allograft and autograft bone into the left lateral gutter. The autograft bone, I obtained from the laminectomy at L3-L4. The screws were placed. The ingrid was placed. I did not torque the system. I then went to the right side and in a similar fashion, exposed the pedicles of L4 and L5 and cannulated the pedicles, but did not yet place screws. I did at this point excoriated transverse processes and lateral facets and packed allograft and autograft bone at the location. I then brought in the microscope and I burred down a very generous hemilaminotomy at L4-L5 on the right and then I carried this laterally and assured myself that both the L4 and the L5 roots were well decompressed. I found that in this patient, the L4 root was much larger than average and as it tracked laterally, was compressed by the spondylolisthesis and the hypertrophic ligament. I trimmed the ligament away. I created an excellent exposure for the nerve and then at this point, I placed the pedicle screws at L4 and L5 on the right. I distracted the disk space on the right at this location and then I tilted the bed away from me and perform the anterior operation by making an incision in the right flank. I passed the Audible Magic system with a sheath down to dock at the lateral aspect of the pedicle of L5 and working superior to that. I was able to enter the disk safely with a K wire. I passed the dilator, followed by a working channel. Through this and with pituitaries, I performed a diskectomy. I also used endplate scrapers and scraped again endplate cartilage and as I worked gently, I was able to perform an adequate diskectomy from this approach. I replaced the dilator and then passed the shield to protect the nerve root and removed the dilator. I felt though that the nerve root, because of its large size, was under some pressure and this made me much more cautious about placing the interbody fusion cage. I was able then to gently pass the cage in a safe manner, entering into the disk space and then I gently drilled with further into the disk space from the anterior position and protected the nerve root very well throughout. I obtained fluoroscopic images, showed good position of the cage and I gently compressed the screws on the right hand side to prevent any cage migration. The patient was tilted back and the hardware was torqued. I explored carefully and assured myself that the L4 and the L5 roots were quite free. There was no period where there was significant firing of those root. I was very pleased. I irrigated copiously with antibiotic solution. I explored carefully and laid further fusion bone in the lateral gutters and during this time, I also torqued the hardware on the left in a sequential fashion. At this point then, the laminectomy was completed at L3-L4. The interbody fusion cage and diskectomy were done at L4-L5. The right-sided nerve roots were well decompressed at L4-L5. I felt that I had accomplished my objectives. I irrigated copiously with antibiotic solution. I closed the wound in layers with absorbable suture and the skin was closed with a 4-0 subcuticular stitch. The operation went very well and the patient was taken uneventfully to recovery room in excellent condition. I was quite pleased with the surgery. HEATHER VARMA MD DR: ALEX/main JOB#: [id number] / [id number]
--- NOTE | 2018-03-27 11:10 | PATHOLOGY ---
[facility] Accession Number: [id number] . 01 Material submitted: . LUMBAR DISC AND DECOMPRESSION . 01 Clinician provided ICD-10: M48.061 M54.16 M43.16 . 01 Clinical history: . Lumbar radiculopathy, stenosis, spondylolisthesis . 02 Diagnosis: Segments of fibrocartilaginous, fibroadipose, and skeletal muscle tissue and bone, lumbar disc and decompression: - Degenerative changes of fibrocartilaginous tissue with focal neovascularization. [facility]/03/26/2018 . 02 Comment: There is no evidence of an acute inflammatory process or malignancy. . (JPM:mml; 03/26/18) . 02 Electronically signed: . Tico Joiner MD, Pathologist NPI- [id number] . 01 Gross description: . The specimen is received in formalin, labeled "Jesus Manuel Simon, lumbar disc and decompression" and consists of multiple fragments of fibrous tissue, adipose/soft tissue, and bone measuring 5.8 x 5.5 x 1.3 cm in aggregate. A rental sales representative portion is submitted in A1 following decalcification. (SDY; 03/25/2018) SYU/SYU . 02 Pathologist provided ICD-10: M51.36 . 02 CPT . 215011, 019616 Specimen Comment: A courtesy copy of this report has been sent to Specimen Comment: [phone], . Specimen Comment: Report sent to / DR CANNON Performed at: 01 [facility] [address], [place], [place] [id number] MD Benji Saeed MD Phone: [phone] Performed at: 02 [facility] [address], [place] [id number] MD Tico Joiner MD Phone: [phone]
== END 2018-03-24 13:30 | disposition home or self-care (01) | DRG 455 ==
LOC: OPSVCIP 06:01 → 4 NORTH 16:18
PROVIDERS: ADMIT Neurological Surgery; ATTEND Neurological Surgery
PROC: 0SG00A0 Fusion of Lumbar Vertebral Joint with Interbody Fusion Device, Anterior Approach, Anterior Column, Open Approach (ICD-10-PCS; 2018-03-22)
PROC: 0SB20ZZ Excision of Lumbar Vertebral Disc, Open Approach (ICD-10-PCS; 2018-03-22)
PROC: 01NB0ZZ Release Lumbar Nerve, Open Approach (ICD-10-PCS; 2018-03-22)
PROC: 4A11X4G Monitoring of Peripheral Nervous Electrical Activity, Intraoperative, External Approach (ICD-10-PCS; 2018-03-22)
PROC: 0SG0071 Fusion of Lumbar Vertebral Joint with Autologous Tissue Substitute, Posterior Approach, Posterior Column, Open Approach (ICD-10-PCS; principal; 2018-03-22 08:30)
DX: M48.062 Spinal stenosis, lumbar region with neurogenic claudication (principal); M43.16 Spondylolisthesis, lumbar region; M54.16 Radiculopathy, lumbar region; M06.9 Rheumatoid arthritis, unspecified; M19.90 Unspecified osteoarthritis, unspecified site; M81.0 Age-related osteoporosis without current pathological fracture; I10 Essential (primary) hypertension; E11.9 Type 2 diabetes mellitus without complications; G43.909 Migraine, unspecified, not intractable, without status migrainosus; Z96.659 Presence of unspecified artificial knee joint; Z90.710 Acquired absence of both cervix and uterus; Z83.3 Family history of diabetes mellitus; Z82.49 Family history of ischemic heart disease and other diseases of the circulatory system
CPT/HCPCS: 36415; 72131; 76000; 80053; 85025; 85610; 85730; 86850; 86900; 86901; 87641; 88304; 88311; A7015; C1713; J0330; J0690; J1100; J1885; J2270; J2370; J2405; J2704; J3010; J3490; J7030; J7120; Q0163; 97116; 97530

== ENCOUNTER → 2018-10-23 | Outpatient (CLI) | payer MEDICARE, OTHER ==
[~2018-10-23] MED LIST changes: -BACITRACIN 50,000 UNIT in IV NORMAL SALINE 1000ML BAG 1,000 ML IRR ONE; -GABA600T2 PO; +GABA600T7 PO; -GABA800T2 PO; +GABA800T5 PO; +GADOBUTROL 7.5 MMOL/7.5 ML VIAL IV ONE; -GELATIN SPONGE SIZE 100. ONE; -HYDR-2766 PO; +HYDR-2769 PO; -KETOROLAC 60 MG/2 ML INJ FOR OR. ONE; +METH750T2 PO; -OXYC-328 PO; +OXYC1TAB22 PO; +OXYC1TAB8 PO; -THROMBIN TOPICAL 20,000 UNIT SPRAY.SYRN KIT TP ONE
[2018-10-23 10:05] LABS: CREATININE 1.1 mg/dL (0.6-1.0); GFR 49.2
--- NOTE | 2018-10-23 11:25 | RAD ---
MRI Lumbar Spine without and with contrast History: Chronic low back pain with worsening left leg radiculopathy, previous lumbar fusion, previous spinal stimulator Technique: Multiplanar, multi sequential pre- and postcontrast MR imaging was performed of the lumbar spine. Comparison: None other than March 22, 2018 CT exam. Findings: There is again transitional anatomy of the lumbar spine. There is a rudimentary intervertebral disc space at what is considered L5-S1 with the most inferior fully formed intervertebral disc space considered L4-5. There is grade 1 anterior spondylolisthesis at what is considered L4-5, negligible anterior spondylolisthesis at L3-4. There are now bilateral pedicle screws at what is considered L4-5, also interbody graft. Exam does not accurately evaluate integrity of hardware. There are multilevel Schmorl's nodes, largest focus superiorly of T12 as seen previously. There is again narrowing L4-5 and vertebral disc space, mild degenerative disc disease L3-4 and mild disc desiccation more superior lumbar levels. There is trace edema of the superior L5 endplate likely reactive/degenerative in etiology. Conus terminates near T12-L1. There is no nodular enhancement of the conus or cauda equina. There is nonspecific fairly diffuse heterogeneity of the marrow signal, not associated with significant STIR hyperintense signal/edema. T12-L1: There is negligible disc osteophyte complex and bulge. Spinal canal and neural foramina are adequate. L1-L2: There is mild buckling of the ligamentum flavum and facet degenerative change. There is negligible disc osteophyte complex. Spinal canal and neural foramina are adequate. There is hemangioma of the right superior L1 vertebral body. L2-L3: There is mild buckling of the ligamentum flavum and facet degenerative change. There is small synovial cyst in the far right lateral recess about 0.4 cm greatest dimension, contributes to mild narrowing of the far right lateral recess from posteriorly. Neural foramina are adequate. L3-L4: There has been posterior decompression. There is minimal disc osteophyte complex and bulge, mild indentation upon the ventral thecal sac. There is minimal narrowing of the far left lateral recess. There is a nonspecific, likely fluid collection on the right located posterior to site of posterior decompression estimated about 1.9 cm CC by 0.8 cm AP by about 0.7 cm transverse best seen on postcontrast images, does not result in mass effect upon the thecal sac. There is facet degenerative change which contributes to mild posterior narrowing of the right neural foramen. There is also mild to moderate narrowing of the left neural foramen by facet degenerative change and disc osteophyte complex. L4-L5: There has been posterior decompression. There is mild partial uncovering of the posterior aspect of the disc due to spondylolisthesis. Spinal canal is overall adequate. There is mild narrowing of the left neural foramen. There is more focal epidural lipomatosis in the far right lateral recess at the posterior margin of the right neural foramen. Right neural foramen is poorly visualized with effacement of perineural fat around the exiting right L4 nerve root, likely overall mild narrowing. L5-S1: Neural foramina and spinal canal are adequate. Impression: 1. There is transitional anatomy of the lumbar spine, grade 1 anterior spondylolisthesis at what is considered L4-5 and to lesser degree at L3-4. There has been posterolateral fusion at what is considered L4-5. There is no significant lumbar spinal stenosis, minimal narrowing of the far left lateral recess at L3-4 and minimal narrowing of the far right lateral recess from posteriorly at L2-3. There is neural foramina compromise as stated most notable [id number] narrowing on the left at L3-4, mild narrowing on the right at L3-4 and bilaterally at L4-5. Electronically signed by: Bernabe Hughes MD (10/23/2018 11:21 AM) [facility]
--- NOTE | 2018-10-23 12:50 | RAD ---
EXAM: Right hip, 2 views. HISTORY: Pain. COMPARISON: None. FINDINGS: 2 views of the right hip are obtained. There is no fracture, dislocation or subluxation. There is instrumented fusion involving the visualized lumbar spine. IMPRESSION: No acute osseous finding. Electronically signed by: Willa Powers MD (10/23/2018 12:47 PM) [facility]
== END | disposition home or self-care (01) ==
LOC: MRI 08:58
PROVIDERS: ATTEND Neurological Surgery
DX: M43.16 Spondylolisthesis, lumbar region (principal); M48.061 Spinal stenosis, lumbar region without neurogenic claudication; M43.26 Fusion of spine, lumbar region; M51.16 Intervertebral disc disorders with radiculopathy, lumbar region; M25.78 Osteophyte, vertebrae; D18.09 Hemangioma of other sites; M71.38 Other bursal cyst, other site; M25.551 Pain in right hip; G89.29 Other chronic pain
CPT/HCPCS: 36415; 72158; 73502; 82565; 84520; A9585

== ENCOUNTER → 2018-11-27 | Outpatient (CLI) | payer MEDICARE, OTHER ==
[~2018-11-27] MED LIST changes: -GADOBUTROL 7.5 MMOL/7.5 ML VIAL IV ONE
--- NOTE | 2018-11-27 11:20 | RAD ---
EXAM: MRI right shoulder DATE: 11/27/2018 10:30 AM COMPARISON: 11/20/2018 INDICATION: Right shoulder pain-2 months TECHNIQUE: Multiplanar, multisequence MRI of the right shoulder was performed without contrast. FINDINGS: No significant right glenohumeral joint effusion. Trace subacromial-subdeltoid bursal edema likely bursitis. Moderate AC joint degenerative changes small inferior projecting osteophytes. There is a partial-thickness articular sided tear of the anterior fibers of the supraspinatus tendon measuring approximately 8 mm in AP dimension involving approximately 50% tendon thickness. In addition posteriorly there is a partial-thickness articular sided tear of the infraspinatus tendon also involving approximately 50% tendon thickness measuring approximately 1 cm in AP dimension. Background of moderate supraspinatus and infraspinatus tendinosis. There is also moderate subscapularis tendinosis. No rotator cuff muscle atrophy. Moderate intra and extra articular biceps tendinosis. There may be a partial-thickness tear at the level of the intertubercular groove. Evaluation of the labrum is limited on this nonarthrographic exam. Within these constraints no discrete labral tear is identified. Articular cartilage is grossly preserved. No evidence for fracture or osteonecrosis. IMPRESSION: 1. Partial-thickness articular sided tear of the supraspinatus and infraspinatus tendons in a background of moderate supraspinatus, infraspinatus and subscapularis tendinosis. 2. Moderate intra and extra articular long head biceps tendinosis. Equivocal partial-thickness tear at the level of the tuberosities. 3. AC joint degenerative changes. Electronically signed by: Carlito Garnica MD (11/27/2018 11:17 AM) [facility]
== END | disposition home or self-care (01) ==
LOC: MRI 09:41
PROVIDERS: ATTEND Orthopaedic Surgery
DX: S46.011A Strain of muscle(s) and tendon(s) of the rotator cuff of right shoulder, initial encounter (principal); M19.011 Primary osteoarthritis, right shoulder; M25.711 Osteophyte, right shoulder; M75.91 Shoulder lesion, unspecified, right shoulder; X58.XXXA Exposure to other specified factors, initial encounter; Y93.89 Activity, other specified; Y92.89 Other specified places as the place of occurrence of the external cause; Y99.8 Other external cause status
CPT/HCPCS: 73221

== ENCOUNTER 2018-12-24 05:46 | Day surgery (SDC) | payer MEDICARE, OTHER ==
[~2018-12-24] VITALS: Ht 167.6 cm; Wt 86.6 kg
[~2018-12-24 05:46] MED LIST changes: +CYAN10005 PO; +ESTR2TAB4 PO; +HYDR12.58 PO; +LOSA100T14 PO; +MONT10TA49 PO; -MONT10TA6 PO
[2018-12-24] MEDS ORDERED: ONDANSETRON PF 4 MG/2 ML VIAL. ONE (06:41)
[2018-12-24] MEDS ORDERED: LIDOCAINE 2% PF 5 ML VIAL. ONE (06:41)
[2018-12-24] MEDS ORDERED: ROCURONIUM 50 MG/5 ML VIAL. ONE (06:41)
[2018-12-24] MEDS ORDERED: DEXAMETHASONE SOD PHOS 4 MG/ML VIAL ONE ×2 (06:41→07:01)
[2018-12-24] MEDS ORDERED: PROPOFOL 20 ML IV ONE (06:41)
[2018-12-24] MEDS: IV RINGERS,LACTATED 1000ML 1,000 ML IV SCH (06:51)
[2018-12-24] MEDS ORDERED: ROPIVacaine 0.5% PF 20 ML VIAL. ONE (06:58)
[2018-12-24] MEDS ORDERED: fentaNYL PF VIAL 100 MCG/2 ML VIAL IV PRN ×2 (07:00)
[2018-12-24] MEDS ORDERED: ONDANSETRON PF 4 MG/2 ML VIAL. IV PRN (07:00)
[2018-12-24] MEDS ORDERED: MORPHINE SULFATE 2 MG/ML VIAL. IV PRN (07:00)
[2018-12-24] MEDS ORDERED: HYDROmorphone 2 MG/ML VIAL IV PRN (07:00)
[2018-12-24] MEDS ORDERED: PROCHLORPERAZINE 10 MG/2 ML VIAL. IV PRN (07:00)
[2018-12-24] MEDS ORDERED: OXYC1TAB19 PO (07:28)
[2018-12-24] MEDS ORDERED: MIDAZOLAM HCL/PF 2 MG/2 ML VIAL. ONE (07:33)
[2018-12-24] MEDS ORDERED: fentaNYL PF VIAL 100 MCG/2 ML VIAL ONE (07:33)
[2018-12-24] MEDS ORDERED: PHENYLEPHRINE in 0.9% NACL PF 1 MG/10 ML SYRINGE. IV ONE (07:37)
[2018-12-24] MEDS ORDERED: ceFAZolin 2GM PREMIX 2 GM/50 ML BAG IV ONE (08:00)
[2018-12-24] MEDS ORDERED: SEVOFLURANE > 120 MINUTES. IH ONE (08:49)
[2018-12-24] MEDS ORDERED: GLYCOPYRROLATE 1 MG/5 ML VIAL. ONE (09:01)
[2018-12-24] MEDS: EPINEPHrine VIAL 30 MG/30 ML VIAL ONE (09:05)
[2018-12-24] MEDS: oxyCODONE/APAP 7.5/325 1 TAB TABLET PO ONE (11:13)
[2018-12-24 11:35] VITALS: BP 125/48
[2018-12-24] MEDS ORDERED: NEOSTIGMINE METHYLSULFATE 5 MG/5 ML SYRINGE. ONE (12:30)
--- NOTE | 2018-12-24 13:15 | PDOC4 ---
Operative Note Operative Note Date of surgery: 12/24/2018 Preoperative diagnosis: Rotator cuff tear biceps tendon compromise and tenderness acromioclavicular joint with degenerative change Postoperative diagnosis: Severe biceps tendon fraying partial thickness undersurface rotator cuff tear impingement and acromioclavicular joint degeneration Procedure: Right shoulder arthroscopy biceps tenodesis debridement of partial- thickness rotator cuff tear subacromial decompression and distal clavicle excision Surgeon: Justine Anesthesia: Gen. Estimated blood loss: 10 mL Complications: None Operative indications: Please see my preoperative clinic note for detailed operative indications and note that we have discussed repair of all pathologic conditions including possibility of rotator cuff repair expected biceps tenodesis and excision of her distal clavicle among others I had gone over with her risks benefits postoperative course of this procedure and the possibility of infection nerve or blood vessel damage nonhealing medical or other anesthetic complications among others along with the typical long postoperative recovery process for shoulders all her questions were answered she wishes to proceed with surgical evaluation and treatment. Operative text: Patient was identified procedure verified patient placed in the supine position on the operating table. After adequate amounts of general anesthesia plus a pre-existing scalene block were obtained she was placed in the decubitus position right side up on the beanbag with an axillary roll and all bony prominences well-padded. The right upper extremity was then prepped and draped in standard sterile fashion. After timeout was performed patient procedure identified and verified the right upper extremity was placed in the arthroscopic arm galvez with a total of 10 pounds of traction and a standard posterior portal was established an anterior portal established using spinal needle localization and shoulder joint was systematically examined. She was noted to have very significant fraying intra-articular of the long head biceps tendon which was tagged and cut. She had significant undersurface fraying of the distal supraspinatus insertion which was trimmed back to stable tissue with arthroscopic shaver and involved less than 30% of the tendon thickness based on examination of the rotator cuff footprint. Subscapularis was noted to be intact as were the capsular ligamentous structures and glenohumeral joint cartilage. Subacromial space was then entered bursa was cleared to allow visualization and the bursal surface of the rotator cuff was overall intact distal clavicle and acromioclavicular joint were noted to be severely arthritic and exposed subacromial decompression was carried out converting the anterior acromial spur and to a type I acromion using cutting block technique distal clavicle excision was carried out to 1 cm with preserving the overlying joint capsule for stability bony fragments were removed joint was drained of arthroscopic fluid c losure accomplished with Adalid Vicryl subcuticular Monocryl Steri-Strips and Mastisol sterile dressings were applied she is placed in a sling returned to recovery room in stable condition having tolerated procedure well CONCHA WEI MD Dec 24, 2018 13:15
== END 2018-12-24 12:01 | disposition home or self-care (01) ==
LOC: SURG 05:46
PROVIDERS: ATTEND Orthopaedic Surgery
DX: M75.111 Incomplete rotator cuff tear or rupture of right shoulder, not specified as traumatic (principal); M75.41 Impingement syndrome of right shoulder; M19.011 Primary osteoarthritis, right shoulder; M66.821 Spontaneous rupture of other tendons, right upper arm; E11.9 Type 2 diabetes mellitus without complications; E78.5 Hyperlipidemia, unspecified; Z98.890 Other specified postprocedural states; Z90.710 Acquired absence of both cervix and uterus; Z96.652 Presence of left artificial knee joint; Z79.84 Long term (current) use of oral hypoglycemic drugs
CPT/HCPCS: 29824; 29826; 29828; A7015; C1713; J0171; J0696; J1100; J2001; J2250; J2370; J2405; J2704; J2710; J2795; J3010; J3490

== ENCOUNTER → 2020-01-06 | Outpatient (CLI) | payer MEDICARE, OTHER ==
[~2020-01-06] MED LIST changes: +CYAN-25 PO; -CYAN10005 PO; +OXYC1TAB19 PO
--- NOTE | 2020-01-06 17:32 | RAD ---
CT scan of the lumbar spine without contrast 01/06/2020 CLINICAL HISTORY: Low back pain. History of previous fusion. TECHNIQUE: Unenhanced, contiguous, 0.625 mm axial sections were obtained through the lumbar spine. 3 mm reconstructed sagittal, axial and coronal images were obtained. One or more of the following individualized dose reduction techniques were utilized for this study: 1. Automated exposure control. 2. Adjustment of the mA and/or kV according to patient size. 3. Use of iterative reconstruction technique. FINDINGS: Comparison is made to a CT myelogram dated 03/12/2018. Sagittal and coronal reconstructed images demonstrate very mild S-shaped curvature of the thoracolumbar spine. L5 is sacralized. The patient is post fusion at L4-5 using pedicle screws, stabilizing rods and bone graft material. Mild anterolisthesis of L4 in relation to L5 is seen. Degenerative changes consisting of vertebral endplate sclerosis, Schmorl's node formation and minimal to mild anterior and posterior vertebral body osteophyte formation are seen throughout the lumbar disc spaces. Atherosclerotic calcification of the abdominal aorta and its branches is noted. At the L1-2 disc space there is a mild generalized disc bulge. Degenerative changes are seen involving the facet joints bilaterally. There is mild ligamentum flavum hypertrophy bilaterally. These findings do not result in significant central spinal canal or neural foraminal stenosis. At the L2-3 disc space there is a mild to moderate generalized disc bulge. Degenerative changes are seen involving the facet joints bilaterally. There is mild to moderate ligamentum flavum hypertrophy bilaterally. These findings when combined result in mild central spinal canal stenosis. No neural foraminal stenosis is seen. At the L3-4 disc space there is a mild to moderate generalized disc bulge. The patient appears to be post right hemilaminectomy. Degenerative changes are seen involving the facet joints bilaterally. These findings do not result in significant central spinal canal stenosis. Mild to moderate bilateral neural foraminal stenosis is seen. At the L4-5 disc space the patient appears to be post bilateral hemilaminotomy. Degenerative changes are seen involving the facet joints bilaterally. No significant central spinal canal stenosis is seen. Mild to moderate left neural foraminal stenosis is noted. The right neural foramen is patent. The L5-S1 disc space is within normal limits. IMPRESSION: 1. Postsurgical changes are seen as discussed above. 2. The changes of degenerative disc disease are seen involving the lumbar spine. These findings result in mild central spinal canal stenosis at L2-3. Mild to moderate bilateral neural foraminal stenosis is seen L3-4. Mild to moderate left neural foraminal stenosis is seen at L4-5. Electronically signed by: Leon Maynard MD (01/06/2020 5:29 PM) [id number]
== END | disposition home or self-care (01) ==
LOC: CT 12:25
PROVIDERS: ATTEND Neurological Surgery
DX: M48.061 Spinal stenosis, lumbar region without neurogenic claudication (principal); M47.896 Other spondylosis, lumbar region; M51.36 Other intervertebral disc degeneration, lumbar region; M43.8X5 Other specified deforming dorsopathies, thoracolumbar region; M51.46 Schmorl's nodes, lumbar region; M25.78 Osteophyte, vertebrae; I70.0 Atherosclerosis of aorta
CPT/HCPCS: 72131

== ENCOUNTER → 2020-02-05 | Outpatient (CLI) | payer MEDICARE ==
[~2020-02-05] MED LIST changes: +ESCITALOPRAM OX20 MG PO; +VENTOLIN HFA18 GM INH
[2020-02-05 14:00] LABS: PROTHROMBIN TIME PATIENT 12.5 SEC (11.7-14.0)
== END | disposition home or self-care (01) ==
LOC: SURGPAT 12:38
PROVIDERS: ATTEND Neurological Surgery
DX: Z01.812 Encounter for preprocedural laboratory examination (principal); Z20.828 Contact with and (suspected) exposure to other viral communicable diseases; M54.5 Low back pain; M96.0 Pseudarthrosis after fusion or arthrodesis
CPT/HCPCS: 36415; 85610; 85730; 87641; U0003

== ENCOUNTER 2020-02-12 05:56 | Inpatient (IN) | payer MEDICARE ==
--- NOTE | 2020-02-11 11:24 | HP ---
ADMIT DATE: 02/12/2020 PREOPERATIVE HISTORY AND PHYSICAL DATE OF SURGERY: 02/12/2020 HISTORY OF PRESENT ILLNESS: The patient is a pleasant 69-year-old who underwent a lumbar microdecompression in 07/2018 and did well. After that, she did develop recurrent problems and underwent an instrumented fusion at L4-L5 as well as a laminectomy at L3-L4 in 03/2019. She did well from that surgery also. She says she was doing well until 02/2019 when she was kicked by a ball. She says she continues to have back pain that she would rate an 8/10 constantly. Standing or bending over or any household activities increase her pain. She is not taking any pain medication currently. She is also having difficulty with stiffness and pain in her neck. She has been seen in the pain clinic for this problem. She has also had cervical physical therapy, which has not been helpful. She wears a lumbar brace when she is active, which does help some. PAST MEDICAL HISTORY: Arthritis, artificial left knee, headaches and migraines, hypertension, osteoporosis, rheumatoid arthritis, diabetes. PAST SURGICAL HISTORY: Hysterectomy in 1981, angioplasty balloon 1997, total knee replacement in 2012, bladder repair, spinal cord stimulator in 2013 and decompression L4-L5 on the left with removal of synovial cyst, removal of spinal cord stimulator in 07/2017, decompression at L4-L5 on the right with instrumented fusion, laminectomy at L3-L4 in 03/2019. FAMILY HISTORY: Cancer, diabetes, and hypertension. SOCIAL HISTORY: Retired. . Exercises daily. Denies substance abuse. Denies tobacco use. Drinks coffee daily. ALLERGIES: No known drug allergies. CURRENT MEDICATIONS: Singulair, montelukast sodium, Topamax, escitalopram oxalate, gabapentin, losartan, Wellbutrin, Xanax, and metoprolol. REVIEW OF SYSTEMS: A 12-point review of systems was obtained and is noncontributory except that mentioned above. NEUROSURGERY EXAMINATION: GENERAL APPEARANCE: Alert, pleasant, in no acute distress. HEAD: Normocephalic and atraumatic. SKIN: Warm and dry. MUSCULOSKELETAL: Lumbar paraspinal muscle bulk is normal, restricted range of motion of the lumbar spine, [id number] tenderness of lower lumbar spine with palpation, range of motion of the lower extremities bilaterally. EXTREMITIES: No clubbing, cyanosis or edema. NEUROLOGIC: Alert and oriented x 3, normal recent and remote memory, strength 5/5 in bilateral lower extremities, sensory was intact to light touch in lower extremities bilaterally. Reflexes are present and symmetric in bilateral lower extremities, negative straight leg raising bilaterally, normal gait. IMAGING: I reviewed a lumbar CT scan. I do not see evidence of a solid fusion at L4-L5. ASSESSMENT/PLAN: I believe her back pain is related to pseudoarthrosis at L4- L5. I have recommended a lumbar surgery where removal and replacement of the hardware at L4-L5 would be necessary as well as augmentation of her fusion. We spoke about the surgery including the rationale, technique, risks, and expected postoperative course. She understands. She would like to proceed. We will make the arrangements. HEATHER VARMA MD DR: ALEX/main JOB#: [id number] / [id number] VILMA
[2020-02-12] VITALS (10 sets, daily range): BP systolic 114–137; BP diastolic 45–69
[~2020-02-12] VITALS: Ht 165.1 cm; Wt 83.9 kg
[2020-02-12] MEDS ORDERED: BACITRACIN 50,000 UNIT in IV NORMAL SALINE 1000ML BAG 1,000 ML IRR ONE (06:00)
[2020-02-12] MEDS ORDERED: KETOROLAC 60 MG/2 ML VIAL. ONE (06:42)
[2020-02-12] MEDS ORDERED: BUPIVACAINE-EPI 0.5%-1:200000 MPF 30 ML VIAL. ONE (06:42)
[2020-02-12] MEDS ORDERED: GELATIN SPONGE SIZE 100. ONE (06:42)
[2020-02-12] MEDS ORDERED: THROMBIN TOPICAL 20,000 UNIT SPRAY.SYRN KIT TP ONE (06:42)
[2020-02-12] MEDS: IV RINGERS,LACTATED 1000ML 1,000 ML IV SCH ×2 (06:51→13:56)
[2020-02-12] MEDS ORDERED: fentaNYL PF VIAL 100 MCG/2 ML VIAL IV PRN (07:00)
[2020-02-12] MEDS ORDERED: HYDROmorphone 2 MG/ML VIAL IV PRN (07:00)
[2020-02-12] MEDS ORDERED: PROPOFOL 50 ML IV ONE ×3 (07:45→11:48)
[2020-02-12] MEDS ORDERED: PROPOFOL 10 MG/ML (20ML) VIAL. IV ONE ×2 (07:45→09:39)
[2020-02-12] MEDS ORDERED: fentaNYL PF VIAL 100 MCG/2 ML VIAL ONE ×3 (07:46→13:27)
[2020-02-12] MEDS ORDERED: REMIFENTANIL 2 MG VIAL. IV ONE (07:46)
[2020-02-12] MEDS ORDERED: SUCCINYLCHOLINE 200 MG/10 ML VIAL. ONE (07:46)
[2020-02-12] MEDS ORDERED: ROCURONIUM 50 MG/5 ML VIAL. ONE (07:46)
[2020-02-12] MEDS ORDERED: 0.9 % SODIUM CHLORIDE 20 ML VIAL. IJ ONE (07:46)
--- NOTE | 2020-02-12 08:45 | RAD ---
EXAM: CT Lumbar Spine without IV contrast INDICATION: Reason: BACK PAIN - BRAIN LAB / Spl. Instructions: / History: TECHNIQUE: Multi-detector row CT images were obtained through the lumbar spine without the use of IV contrast. Post-processing sagittal and coronal reconstructed images were obtained for interpretation. All CT scans performed at this facility utilize dose optimization techniques as appropriate to the exam, including the following: Automated exposure control and adjustment of the mA and/or KV according to patient size (this includes techniques or standardized protocols for targeted exams where dose is indication/reason for exam). COMPARISON: CT lumbar spine without IV contrast of 01/06/2020 FINDINGS: The lowest fully formed disc is referred to as the L5-S1 level in this report, in keeping with the naming convention used in the previous report. Note that since L5 is sacralized, it is possible for L5 to be alternatively considered S1 as may have been done during annotation of the individual levels on the cross-sectional images acquired on this exam. This potential discrepancy should be borne in mind while considering future treatment plans. ALIGNMENT: Minimal levoscoliosis of the lumbar spine apex at L4. Minimal anterolisthesis of L4 on L5 measuring 3 mm. OSSEOUS: No evidence of fracture or bone destruction. DISC LEVELS: At T12-L1, diffuse disc bulge and Schmorl's node at the superior endplate of T12 is present. Minimal left facet hypertrophy. Mild bilateral foraminal narrowing. Central canal measures 9.8 mm AP. At L1-L2, diffuse disc bulge, mild bilateral facet hypertrophy and ligamentum flavum thickening results in mild flattening of the ventral thecal sac, central canal measuring approximately 9 mm AP. Disc loss of height contributes to mild bilateral foraminal narrowing. Inferior endplate Schmorl's node at L1 noted. At L2-L3, diffuse disc bulge, mild facet hypertrophy, and ligamentum flavum thickening results in at least moderate central canal stenosis with central canal AP diameter measuring 5 mm. Mild bilateral foraminal narrowing also present. Superior and inferior endplate Schmorl's nodes at L2 noted. At L3-L4, diffuse disc bulge with vacuum phenomenon and Schmorl's node at the inferior endplate of L3 is present along with bilateral facet hypertrophic change. There has been a previous right L3 hemilaminectomy and there are bilateral pedicle screws at L4 that create streak artifact limiting detailed evaluation. The combination of diffuse disc bulge asymmetric to the right and facet hypertrophy results in severe right foraminal stenosis and moderate left foraminal stenosis. At L4-L5, posterior ingrid and pedicle screw hardware fusion is present with bilateral pedicle screws at L4 and at L5 connected by stabilizing rods and bone graft material. An interbody graft is also present right of center in the disc space. It is incompletely incorporated. There is lucency around the left L5 pedicle screw. Disc loss of height and residual facet hypertrophic change results in moderate left and mild right bilateral foraminal narrowing.. There is suggestion of moderate central canal narrowing due to diffuse disc bulge but detail is limited by streak artifact from adjacent spinal hardware. At L5-S1, there is an incompletely formed disc and the facet joints are fused in the setting of partial sacralization of L5 bilaterally. Bilateral neural foramina are widely patent. No central canal stenosis is apparent. SOFT TISSUES: Patient has densely calcified abdominal aorta and surgical changes at the gastroesophageal junction suggesting previous Kirsten-en-Y gastric bypass. IMPRESSION: Multilevel lumbar spinal degenerative spondylosis as described, status post right L3 laminectomy and L4-L5 posterior ingrid and pedicle screw construct fusion with lucency around the left L5 pedicle screw that could indicate hardware loosening. Electronically signed by: Salbador Dorman MD (02/12/2020 8:43 AM) [id number]
[2020-02-12] MEDS ORDERED: DEXAMETHASONE SOD PHOS 20 MG/5 ML VIAL. ONE (09:39)
[2020-02-12] MEDS ORDERED: ONDANSETRON PF 4 MG/2 ML VIAL. ONE (09:59)
[2020-02-12] MEDS ORDERED: PHENYLEPHRINE in 0.9% NACL PF 1 MG/10 ML SYRINGE. IV ONE (09:59)
[2020-02-12] MEDS ORDERED: ePHEDrine PF IN SALINE 50 MG/10 ML SYRINGE. IV ONE (10:04)
[2020-02-12] MEDS ORDERED: DESFLURANE > 120 MINUTES IH ONE (10:19)
[2020-02-12] MEDS ORDERED: PROCHLORPERAZINE 10 MG/2 ML VIAL. ONE (13:15)
[2020-02-12] MEDS ORDERED: MORPHINE SULFATE 2 MG/ML VIAL. ONE (13:15)
[2020-02-12] MEDS ORDERED: oxyCODONE/APAP 7.5/325 1 TAB TABLET PO PRN ×2 (13:30)
[2020-02-12] MEDS ORDERED: 0.9 % SODIUM CHLORIDE 10 ML DISP.SYRIN. IV PRN (13:30)
[2020-02-12] MEDS ORDERED: ALPRAZolam 0.25 MG TABLET PO PRN (13:30)
[2020-02-12] MEDS ORDERED: MAGNESIUM HYDROXIDE 2,400 MG/30 ML ORAL.SUSP. PO PRN (13:30)
[2020-02-12] MEDS ORDERED: ACETAMINOPHEN 325 MG TABLET. PO PRN (13:30)
[2020-02-12] MEDS ORDERED: NALOXONE 0.4 MG/ML VIAL. IV PRN (13:30)
[2020-02-12] MEDS ORDERED: MAG HYDROX/ALUMINUM HYD/SIMETH 30 ML ORAL.SUSP PO PRN (13:30)
[2020-02-12] MEDS ORDERED: diphenhydrAMINE HCL 25 MG CAPSULE PO PRN (13:30)
[2020-02-12] MEDS ORDERED: CALCIUM CARBONATE 500 MG TAB.CHEW PO PRN (13:30)
[2020-02-12] MEDS ORDERED: fentaNYL PF VIAL 100 MCG/2 ML VIAL IVP PRN (13:30)
[2020-02-12] MEDS ORDERED: NON FORMULARY ITEM (Albuterol Sulfate (Ventolin Hfa Inhaler) 2 PUFF) INH PRN (13:30)
--- NOTE | 2020-02-12 13:41 | OP ---
DATE OF SURGERY: 02/12/2020 PREOPERATIVE DIAGNOSES: Pseudoarthrosis, L4-L5. POSTOPERATIVE DIAGNOSES: Pseudoarthrosis, L4-L5. OPERATION PERFORMED: Removal of hardware, L4-L5; posterolateral fusion, L4-L5 with allograft bone; placement of hardware, L4-L5. The operation was done with EMG monitoring, SSEP monitoring, triggered EMG monitoring, fluoroscopy, microscopic dissection, BrainLAB guidance. SURGEON: Jovani Varma M.D. [employer] OPERATOR: BIBIANA Gann assisted with the surgery. She assisted with the exposure, the removal and replacement of the hardware with monitoring as well as the augmentation of the fusion and closure. OPERATIVE INDICATIONS: The patient is a pleasant 69-year-old who underwent an instrumented lumbar fusion in the past and did well. She then had a significant accident/ injury and developed chronic back pain. On imaging studies, she was found to have developed a nonunion at L4-L5 and I recommended refusion and replacement of hardware. She understood the surgery and risks, she wished to go ahead. DESCRIPTION OF PROCEDURE: Following general endotracheal anesthesia, the patient was positioned prone on the Liam table. Lumbar region prepped and draped in a standard fashion. PAPI hose and AV impulse boots were applied for DVT prophylaxis. The microscope was draped. Fluoroscopy was draped and brought into field. Monitoring was established. Ancef 2 grams was given less than 1 hour prior to initiation of the surgery. The BrainLAB system was initialized and I opened a portion of her previous midline incision, dissected down through skin and subcutaneous tissue and exposed the pedicle screws on the right side. I dissected these free and removed the screws. They were quite loose. I removed them and I tapped, prepared and placed larger screws, but meanwhile then I outlined the edges that were nonunion. I exposed this more clearly. I worked laterally and exposed the transverse processes. I then aspirated 20 mL of bone marrow mixed with allograft bone, packed this into the lateral gutter and then the facet. I then placed an 8.5 screws using the [employer] system into L4 and L5, placed the ingrid, torqued the system, irrigated copiously. I then went to the left side and performed the same procedure as on the right. Again, the openings for the pedicle screws were rounded out from the chronic motion and I did remove those screws. I re-tapped and placed larger screws after I had excoriated the bone and removed scar to allow for the fusion bone, which I carried out over the transverse processes and lateral facets as well as within the facet. The system was torqued sequentially. I irrigated copiously with antibiotic solution. I then closed the wound in layers with absorbable suture. The skin was closed with 4-0 subcuticular stitch. The operation went very well and the patient was awakened uneventfully. I was quite pleased with the surgery. JOVANI VARMA MD DR: ALEX/main JOB#: [id number] / [id number] VILMA
[2020-02-12] MEDS: PROCHLORPERAZINE 10 MG/2 ML VIAL. IV PRN ×2 (13:53→14:27)
[2020-02-12] MEDS: fentaNYL PF VIAL 100 MCG/2 ML VIAL IV PRN ×2 (13:54→14:03)
[2020-02-12] MEDS: MORPHINE SULFATE 2 MG/ML VIAL. IV PRN ×2 (13:55→14:28)
[2020-02-12] MEDS ORDERED: ALBUTEROL SULFATE 2.5 MG/3 ML NEBU. NEB PRN (15:15)
--- NOTE | 2020-02-12 15:41 | NUR ---
Patient arrived to the floor around 1445 in a bed from PACU. at bedside. Two dressings on lower back with are CDI. Vital signs stable. Room air. IV working properly with fluids infusing in right hand. Patient has a LSO brace already which will bring tomorrow. Has a slight cough/sore throat from being intubated. Ice pack in place on lower back. Will continue to monitor.
[2020-02-12] MEDS: oxyCODONE/APAP 7.5/325 1 TAB TABLET PO PRN ×2 (15:51→20:14)
[2020-02-12] MEDS: GABAPENTIN 300 MG CAPSULE. PO SCH ×2 (15:51→20:13)
[2020-02-12] MEDS: ceFAZolin SODIUM IV Push 1 GM VIAL. IVP SCH ×2 (15:52→22:34)
[2020-02-12] MEDS: POTASSIUM CL 20MEQ D5-0.45NACL 1,000 ML IV SCH (15:55)
[2020-02-12] MEDS: buPROPion XL 150 MG TAB.ER.24H. PO SCH (18:00)
[2020-02-12] MEDS: DOCUSATE SODIUM 100 MG CAPSULE. PO SCH (20:13)
[2020-02-13] MEDS: oxyCODONE/APAP 7.5/325 1 TAB TABLET PO PRN ×4 (01:41→11:59)
[2020-02-13 02:17] VITALS: BP 111/50
[2020-02-13] MEDS: POTASSIUM CL 20MEQ D5-0.45NACL 1,000 ML IV SCH (02:45)
[2020-02-13] MEDS: ceFAZolin SODIUM IV Push 1 GM VIAL. IVP SCH (06:01)
[2020-02-13 06:08] VITALS: BP 107/50
--- NOTE | 2020-02-13 08:00 | NUR ---
cora is up in recliner for breakfast. she is rating her pain a"6" . arrive. dressing to back is clean and dry. she is able to move all extremities, has good sensation and pulses in lower extremities. wanting to go home today.
[2020-02-13] MEDS ORDERED: CYANOCOBALAMIN (VITAMIN B-12) 1,000 MCG TABLET. PO SCH (09:00)
[2020-02-13] MEDS ORDERED: hydroCHLOROthiazide 12.5 MG CAPSULE PO SCH (09:00)
[2020-02-13] MEDS ORDERED: MONTELUKAST SODIUM 10 MG TABLET. PO SCH (09:00)
[2020-02-13] MEDS ORDERED: LOSARTAN POTASSIUM 50 MG TABLET. PO SCH (09:00)
[2020-02-13] MEDS ORDERED: CITALOPRAM 20 MG TABLET. PO SCH (09:00)
[2020-02-13] MEDS: GABAPENTIN 300 MG CAPSULE. PO SCH ×2 (09:09→13:33)
[2020-02-13] MEDS: DOCUSATE SODIUM 100 MG CAPSULE. PO SCH (09:10)
[2020-02-13] MEDS: METHOCARBAMOL 750 MG TABLET PO PRN ×2 (09:10→13:33)
[2020-02-13] MEDS: buPROPion XL 150 MG TAB.ER.24H. PO SCH (09:10)
[2020-02-13] MEDS ORDERED: METH-38 PO (09:41)
[2020-02-13 11:04] VITALS: BP 123/62
--- NOTE | 2020-02-13 12:47 | DISCH ---
DISCHARGE INSTRUCTIONS Condition on Discharge Condition on Discharge: Stable Activity After Discharge Activity Instructions for Disc: Activity as tolerated, Avoid exertion, Walk in house Other activity instructions: MAY SHOWER 48 HRS AFTER SURGERY, NO DIRECT WATER,ANTIBIOTIC CREAM TO INCISI Bathing Instructions: Shower-keep dressing dry, No Tub Bath until see Lifting Instructions after Dis: No heavy lifting, No pulling or pushing, Do not lift >10 pounds Exercise Instruction after Dis: Progress as tolerated Driving Instructions after Dis: No driving for 2 weeks Weight Bearing Status after Di: No restrictions Diet after Discharge Diet after Discharge: Regular Additional Diet Restrictions: resume home diet Wound Incision Care Wound/Incision Care: Ice to area for comfort, Keep wound/cast CDI Other wound/incision instructi: REMOVE DRESSING AFTER SHOWER,REPLACE DRESSING IF DESIRED. NO ANTIBIOTIC CRE Wound Care Equipment: Dressings Checks after Discharge DC Comment: INCREASE FRUITS, VEGETABLES AND FIBER; ATTEMPT BM Q 2-3 DAYS Contacting the DRRomel after DC Call your doctor for: Concerns you may have Follow-Up Follow Up With: CALL [phone] FOR A 2 WEEK POST OP PPT WITH /[facility] Treatment/Equipment after DC Adaptive Equipment Issued: None Comment: NO TUB BATHS, HOT TUBS SWIMMING HEATHER VARMA MD Feb 13, 2020 12:47
--- NOTE | 2020-02-13 13:00 | NUR ---
ready to go home . Griselda stated that she could have some iv medication prior to dismissal for the trip home (over 1 hr)
--- NOTE | 2020-02-13 13:12 | DS ---
DATE OF DISCHARGE: 02/13/2020 DATE OF SURGERY: 02/12/2020. DISCHARGE DIAGNOSIS: Pseudoarthrosis, L4-L5. OPERATION PERFORMED: Removal of hardware, L4-L5; posterolateral fusion, L4-L5 with allograft bone; placement of hardware, L4-L5. HISTORY OF PRESENT ILLNESS: The patient is a pleasant 69-year-old who underwent an instrumented lumbar fusion in the past and did well. She then had a significant injury and developed chronic back pain. On imaging studies, she was found to have developed a nonunion at L4-L5 and I recommended refusion with replacement of hardware. She understood the surgery and the risk and wished to proceed. HOSPITAL COURSE: She was admitted to the floor postoperatively where she did well. She has been up ambulating in the room and in the halls. Physical therapy was initiated and instruction was given to her regarding her activities. Her pain is well controlled and she is in good condition to discharge home. DISCHARGE MEDICATIONS: She will resume her medications per the [facility]AD. DISCHARGE INSTRUCTIONS: She was instructed regarding incision care, activity restrictions and expectations for the next several weeks. She will follow up in our office in 2 weeks. She understands to call with any questions or concerns. HEATHER VARMA MD DR: CANDACE/main JOB#: [id number] / [id number]
--- NOTE | 2020-02-13 13:45 | NUR ---
reviewed written discharge instruction with patient and . "had this done last year" discussed medications, brace, restrictions to activities of daily living such as bathing, driving, exercise. scripts given. extra dressings given; questions answered. dismissed to home with brace on
== END 2020-02-13 14:00 | disposition home or self-care (01) | DRG 460 ==
LOC: OPSVCIP 05:56 → 4 SOUTHEST 14:40
PROVIDERS: ADMIT Neurological Surgery; ATTEND Neurological Surgery
PROC: 0SP004Z Removal of Internal Fixation Device from Lumbar Vertebral Joint, Open Approach (ICD-10-PCS; 2020-02-12)
PROC: 4A11X4G Monitoring of Peripheral Nervous Electrical Activity, Intraoperative, External Approach (ICD-10-PCS; 2020-02-12)
PROC: 07DR0ZZ Extraction of Iliac Bone Marrow, Open Approach (ICD-10-PCS; 2020-02-12)
PROC: 0SG00K1 Fusion of Lumbar Vertebral Joint with Nonautologous Tissue Substitute, Posterior Approach, Posterior Column, Open Approach (ICD-10-PCS; principal; 2020-02-12 08:30)
DX: M96.0 Pseudarthrosis after fusion or arthrodesis (principal); M81.0 Age-related osteoporosis without current pathological fracture; M06.9 Rheumatoid arthritis, unspecified; I10 Essential (primary) hypertension; G89.29 Other chronic pain; E11.9 Type 2 diabetes mellitus without complications; G43.909 Migraine, unspecified, not intractable, without status migrainosus; Z96.659 Presence of unspecified artificial knee joint; M19.90 Unspecified osteoarthritis, unspecified site; Y83.8 Other surgical procedures as the cause of abnormal reaction of the patient, or of later complication, without mention of misadventure at the time of the procedure; Z82.49 Family history of ischemic heart disease and other diseases of the circulatory system; Z83.3 Family history of diabetes mellitus; Z90.710 Acquired absence of both cervix and uterus; Z79.899 Other long term (current) drug therapy
CPT/HCPCS: 36415; 72131; 76000; 86850; 86900; 86901; C1713; C1887; J0330; J0690; J0780; J1100; J1885; J2270; J2370; J2405; J2704; J3010; J3480; J7030; J7120; G0378